=== PATIENT | female | born 1935 | race Caucasian/White ===

== ENCOUNTER 2023-08-23 23:38 | Inpatient (IN) | payer MEDICARE, SELFPAY ==
[2023-08-23] VITALS (10 sets, daily range): BP systolic 141–222; BP diastolic 74–99; PULSE 80–106; BMI 27.6
[2023-08-23 20:53] LABS: % Basophils 0.3 % (0-2); % Eosinophils 0.1 % (0-6); % Immature Granulocytes 0.3 % (0-0.5); % Lymphocytes 14.3 % (20.5-51.1); % Monocytes 5.2 % (1.7-9.3); % Neutrophils 79.8 % (42.2-75.2); Absolute Lymphocytes 1.4 10^3/uL (1.2-3.4); Absolute Monocytes 0.5 10^3/uL (0.1-0.6); Absolute Neutrophils 7.7 10^3/uL (1.4-6.5); Hematocrit 47.3 % (37.0-47.0); Hemoglobin 15.2 g/dL (12.0-16.0); Mean Corp Hgb Conc. 32.1 g/dL (33.0-37.0); Mean Corpuscular Hgb 31.7 pg (27.0-31.0); Mean Corpuscular Volume 98.5 fL (81.0-99.0); Mean Platelet Volume 10.8 fL (7.4-10.4); Nucleated Red Blood Cells % 0 %; Platelet Count 213 10^3/uL (130-400); Red Cell Dist. Width 12.6 % (11.5-14.5); White Blood Cell Count 9.6 10^3/uL (4.8-10.8)
--- NOTE | 2023-08-23 21:10 | ED.GENMED ---
History of Present Illness
<Jaden Liu PA-C - Last Filed: 08/23/23 23:04>
General
Chief Complaint: Breathing Problem
Source: patient
Exam Limitations: none
Time Seen by Provider: 08/23/23 20:37
Travel History
Have you had any contact with someone who has COVID-19?: No
Do you have any symptoms of coronavirus? Fever > 100 degrees, chills, cough, shortness of breath, sore throat, loss of taste or smell, muscle aches, or headache?: No
History of Present Illness
History of Present Illness:
88-year-old female presents with progressively worsening weakness shortness of breath with exertion and generalized dysfunction. She feels weak and unsteady when she stands. She denies a headache or chest pain. No measurable fever. She notes a
cough. Says a history of A-fib on Eliquis. She has a history of interstitial lung disease. She lives by herself. Typically ambulates with a rolling walker. Symptoms have cumulated and at this point patient is having trouble functioning at home.
She noticing increased daytime sleepiness.
Past History
<Jaden Liu PA-C - Last Filed: 08/23/23 23:04>
Past History
ED Past Medical History: GERD, HTN, Hypercholesterolemia and Other (Hiatal hernia, arthritis )
ED Past Surgical History: Appendectomy, Orthopedic (Bilateral knee replacement ) and Tonsilectomy
Social History
Tobacco: Non-smoker
Alcohol: Occasional
Drug: None
Employment: Retired
Family History
Family History: Other (Non-contributory )
Phy Exam
<Jaden Liu PA-C - Last Filed: 08/23/23 23:04>
Physical Exam
Physical Exam:
General: Overall nontoxic female no acute respiratory distress
HEENT: Normocephalic atraumatic
Heart: Regular rate and rhythm
Lungs: Subtle coarse breath sounds at the left base
Abdomen is soft nontender nondistended
Extremities: No cyanosis or edema
Skin: Warm no rash
Neurologic exam: Alert no facial asymmetry or slurred speech. No tremor
Scores
<Jaden Liu PA-C - Last Filed: 08/23/23 23:04>
Heart Failure Risk
Heart Failure Risk Score: Not Applicable
Course
<Jaden Liu PA-C - Last Filed: 08/23/23 23:04>
Orders/Labs/Results
Orders:
Orders
08/23/23 20:03
ECG [Electrocardiogram (*1)] Urgent
Reason for Study: Shortness of Breath
08/23/23 20:04
EKG- Treatment ONCE
08/23/23 20:45
Electrocardiogram (*1) Urgent
Reason for Study: Other
Other Reason for Exam: Respiratory Distress
CR Chest - 2 Views Urgent
Comment:
Reason For Exam: sob
08/23/23 20:47
Complete Blood Count/With Diff Urgent
Comprehensive Metabolic Panel Urgent
NT-proBNP Urgent
Troponin I Urgent
08/23/23 21:57
COVID-19 Antigen Urgent
Source: Nasal Swab
Magnesium Urgent
Phos [Phosphorus] Urgent
TSH Reflex To Free T4 Urgent
Influenza A+B Rapid Molecular Urgent
ANKITA Source: Nasal Swab
Specimen Description:
08/23/23 22:21
Urinalysis Reflex To Culture Urgent
Date Specimen was Collected: 08/23/23
Time Specimen was Collected: 22:20
Urine Microscopic Reflex Cult Urgent
Urine Culture Urgent
ANKITA Source: U
Specimen Description:
Date Specimen was Collected: 08/23/23
Time Specimen was Collected: 22:20
08/23/23 22:23
0.9% Sodium Chloride 500 ml [Nss] 500 ml IV BOLUS
08/23/23 22:59
CefTRIAXone [Rocephin] 1,000 mg IV NOW STA
Abnormal Lab Results
08/23/23 08/23/23
20:47 22:21
Hct 47.3 H %
(37.0-47.0)
MCH 31.7 H pg
(27.0-31.0)
MCHC 32.1 L g/dL
(33.0-37.0)
MPV 10.8 H fL
(7.4-10.4)
Absolute Neuts (auto) 7.7 H 10^3/uL
(1.4-6.5)
Neutrophils % 79.8 H %
(42.2-75.2)
Lymphocytes % 14.3 L %
(20.5-51.1)
BUN 21 H mg/dl
(7-17)
Glucose 195 H mg/dl
(70-99)
Urine Ketones Trace A
(Negative)
Ur Occult Blood Reflex 1+ A
(Negative)
Urine Nitrite (Reflex) Positive A
(Negative)
Leukocyte Esterase Rfl Trace A
(Negative)
Urine RBC 3-6 A /HPF
(0-2)
Urine Bacteria (Reflex) Moderate A
(Negative)
08/23/23 20:47
08/23/23 20:47
Vital Signs
Initial and Last Documented VS:
Initial Vital Signs
Temp Pulse Resp BP Pulse Ox
97.6 F 120 20 163/93 96
08/23/23 20:01 08/23/23 20:01 08/23/23 20:01 08/23/23 20:01 08/23/23 20:01
Last Documented Vital Signs
Temp Pulse Resp BP Pulse Ox
97.6 F 73 19 189/75 95
08/23/23 20:01 08/23/23 22:02 08/23/23 22:02 08/23/23 22:02 08/23/23 22:02
<Henrry Mosqueda MD - Last Filed: 08/23/23 22:17>
Orders/Labs/Results
Orders:
Orders
08/23/23 20:03
ECG [Electrocardiogram (*1)] Urgent
Reason for Study: Shortness of Breath
08/23/23 20:04
EKG- Treatment ONCE
08/23/23 20:45
Electrocardiogram (*1) Urgent
Reason for Study: Other
Other Reason for Exam: Respiratory Distress
CR Chest - 2 Views Urgent
Comment:
Reason For Exam: sob
08/23/23 20:47
Complete Blood Count/With Diff Urgent
Comprehensive Metabolic Panel Urgent
NT-proBNP Urgent
Troponin I Urgent
08/23/23 21:57
COVID-19 Antigen Urgent
Source: Nasal Swab
Magnesium Urgent
Phos [Phosphorus] Urgent
TSH Reflex To Free T4 Urgent
Influenza A+B Rapid Molecular Urgent
ANKITA Source: Nasal Swab
Specimen Description:
08/23/23 22:21
Urinalysis Reflex To Culture Urgent
Date Specimen was Collected: 08/23/23
Time Specimen was Collected: 22:20
Urine Microscopic Reflex Cult Urgent
Urine Culture Urgent
ANKITA Source: U
Specimen Description:
Date Specimen was Collected: 08/23/23
Time Specimen was Collected: 22:20
08/23/23 22:23
0.9% Sodium Chloride 500 ml [Nss] 500 ml IV BOLUS
08/23/23 22:59
CefTRIAXone [Rocephin] 1,000 mg IV NOW STA
Abnormal Lab Results
08/23/23 08/23/23
20:47 22:21
Hct 47.3 H %
(37.0-47.0)
MCH 31.7 H pg
(27.0-31.0)
MCHC 32.1 L g/dL
(33.0-37.0)
MPV 10.8 H fL
(7.4-10.4)
Absolute Neuts (auto) 7.7 H 10^3/uL
(1.4-6.5)
Neutrophils % 79.8 H %
(42.2-75.2)
Lymphocytes % 14.3 L %
(20.5-51.1)
BUN 21 H mg/dl
(7-17)
Glucose 195 H mg/dl
(70-99)
Urine Ketones Trace A
(Negative)
Ur Occult Blood Reflex 1+ A
(Negative)
Urine Nitrite (Reflex) Positive A
(Negative)
Leukocyte Esterase Rfl Trace A
(Negative)
Urine RBC 3-6 A /HPF
(0-2)
Urine Bacteria (Reflex) Moderate A
(Negative)
08/23/23 20:47
08/23/23 20:47
Vital Signs
Initial and Last Documented VS:
Initial Vital Signs
Temp Pulse Resp BP Pulse Ox
97.6 F 120 20 163/93 96
08/23/23 20:01 08/23/23 20:01 08/23/23 20:01 08/23/23 20:01 08/23/23 20:01
Last Documented Vital Signs
Temp Pulse Resp BP Pulse Ox
97.6 F 73 19 189/75 95
08/23/23 20:01 08/23/23 22:02 08/23/23 22:02 08/23/23 22:02 08/23/23 22:02
<Jaden Liu PA-C - Last Filed: 08/23/23 23:04>
MDM/Problems Addressed
Differential Diagnosis Includes:
Generalized fatigue with shortness of breath. History of hypertension A-fib and interstitial lung disease. Noted to be hypertensive initially with his systolic 200s over 90s. Will check labs including EKG troponin and BNP. Chest x-ray pending.
<Jaden Liu PA-C - Last Filed: 08/23/23 23:04>
*Critical Care Note
Total Time (30-74mins, 75-104mins- exclusive of procedures): Not Applicable
<Jaden Liu PA-C - Last Filed: 08/23/23 23:04>
Update Note
Update Note:
Patient reevaluated. Vital signs are stable. She is orthostatic upon standing. She is symptomatic upon standing with relative drop in blood pressure. She has had urinary symptoms and straight cath urine specimen shows likely UTI with nitrite
positive urine and moderate bacteria. Will start Rocephin and give fluids. Patient over the past week has not been able to get out of bed much at all. Will keep in hospital for treatment
ED Attending Note
<Jaden Liu PA-C - Last Filed: 08/23/23 23:04>
-
Portions of this chart may have been created with voice recognition software.� Occasional wrong word or��sound alike� substitutions may have occurred due to the inherent limitations of voice recognition software.
<Henrry Mosqueda MD - Last Filed: 08/23/23 22:17>
ED Attending Note
Patient seen and examined by attending physician: Yes
ED Attending Note:
I have seen and evaluated the patient with a [id number] encounter. I have spoken to the advance practicer provider and involved in the medical history, the physical exam, medical decision making.
Evaluation and management service: agree unless noted differently below.
Results interpretation: agree unless noted differently below.
Focused HPI: 88-year-old female with history of hypertension, hyperlipidemia, interstitial lung disease who presents to the emergency department for evaluation of increased weakness, elevated blood pressure. Patient reports that over the past week
she has been dealing with increased weakness in her legs�she says that 'my legs feel like jelly.' She says that even something as simple as standing in the kitchen making herself lunch caused her to feel very weak and tired. She says that over
that period of time she has been monitoring her blood pressure and she has noticed that it has been higher than usual despite compliance with her normal medications; she says that it has been running in the 160s and 170 range and occasionally going
as high as the 180s. She says that she has chronic shortness of breath with interstitial lung disease but she feels that recently has been getting worse. She says that she decided to come in to be evaluated tonight because things were not getting
any better and in fact seem to be getting worse. She denies any chest pain. Denies any cough. Denies any fever. She has had some increased urinary frequency she says. Denies abdominal pain. No nausea or vomiting but did have a few episodes of
loose stools.
Physical exam: Awake alert not in distress. Hypertensive, tachycardic. Afebrile. She has no cardiac rubs gallops or murmurs. Faint scattered wheezing on lung auscultation. Abdomen nontender to deep palpation. No focal weakness, cranial nerves
grossly intact.
Differential diagnosis: Wide and includes anemia, electrolyte derangement, dehydration, deconditioning, CHF, pneumonia, UTI, viral syndrome, hypothyroidism
Medical Decision Makin-year-old female presents for increasing generalized weakness particularly in the legs, increasing shortness of breath in the setting of chronic dyspnea from interstitial lung disease, uncontrolled blood pressure. Exam as
above. Will place an IV check labs including a CBC, CMP, troponin and a BNP. Will check thyroid studies. Send viral swabs. Check chest x-ray. Check an EKG. Send urinalysis. Monitor closely reassess after the above.
UPDATES:
Reassessment blood pressure improving now 150s systolic. Heart rate normalized after initial triage tachycardia. Her initial labs were reviewed: CBC shows no clinically significant abnormalities, CMP shows mildly elevated glucose otherwise
unremarkable. Troponin undetectable. BNP marginal at 286. Chest x-ray no pneumonia no signs of CHF. EKG shows a sinus rhythm. Awaiting rest of workup.
Discharge Plan
Departure
Patient Disposition: Admit
Date of Disposition: 08/23/23
Time of Disposition: 23:03
Admit to: Telemetry
Presentation/result/management discussed w/ accepting MD/DO: Hospitalist
Discharge Problem:
Orthostasis, Acute UTI
Prescriptions:
No Action
omeprazole 20 MG capsule,delayed release(DR/EC)
20 mg PO DAILY
ascorbic acid (vitamin C) [Vitamin C] 500 MG tablet
1,000 mg PO DAILY Qty: 0
calcium carbonate-vitamin D3 1 EACH tablet
1 tab PO DAILY Qty: 0
escitalopram oxalate 5 MG tablet
5 mg PO DAILY
simvastatin 10 MG tablet
10 mg PO HS
acetaminophen 325 MG tablet
650 mg PO Q4HWA 0RF
cyanocobalamin (vitamin B-12) 1,000 MCG tablet
1,000 mcg PO DAILY 0RF
diltiazem HCl 120 MG capsule,extended release 24hr
120 mg PO DAILY 0RF
cholecalciferol (vitamin D3) 2,000 UNITS tablet
2,000 units PO DAILY 0RF
Eliquis 5 mg tablet
5 mg PO BID Qty: 30 0RF
Referrals:
Ned Rea DO [Family Provider] -
Interventions
Interventions:
*Risk Screen - Suicide Last Done: 08/23/23 20:01
*General Assessment Last Done: 08/23/23 20:01
*Neglect/Abuse Screening Last Done: 08/23/23 20:01
ED- Fall Risk Assessment Last Done: 08/23/23 20:36
*ED COVID-19 Vaccine History Last Done: 08/23/23 20:36
ED- Cardiac Assessment Last Done: 08/23/23 20:36
ED- Pulmonary Assessment Last Done: 08/23/23 20:36
[2023-08-23 21:14] LABS: ALT (SGPT) 17 U/L (0-35); AST (SGOT) 27 U/L (14-36); Albumin 4.6 g/dl (3.5-5.0); Alkaline Phosphatase 119 U/L (38-126); Blood Urea Nitrogen 21 mg/dl (7-17); Calcium 9.5 mg/dl (8.4-10.2); Carbon Dioxide 22 mmol/L (22-30); Chloride 105 mmol/L (98-107); Estimated Creatinine Clearance 44 ml/min; Glucose 195 mg/dl (70-99); Potassium 4.7 mmol/L (3.5-5.1); Sodium 136 mmol/L (135-145); Total Bilirubin 0.6 mg/dl (0.2-1.3); Total Protein 7.2 g/dl (6.3-8.2); eGFR > 60.00
[2023-08-23 21:16] LABS: NT-proBNP 286 pg/ml; Troponin I < 0.012 ng/ml
[2023-08-23 22:26] LABS: Phosphorus 3.6 mg/dl (2.5-4.5)
[2023-08-23 22:27] LABS: Urine Albumin Trace (Neg - Trace); Urine Bilirubin Negative (Negative); Urine Character Clear (Clear); Urine Color Yellow; Urine Glucose Negative (Negative); Urine Ketone Trace (Negative); Urine Leukocyte Trace (Negative); Urine Nitrite Positive (Negative); Urine Occult Blood 1+ (Negative); Urine Urobilinogen Negative (Neg - 1+)
[2023-08-23 22:27] LABS: COVID-19 Antigen Negative (Negative)
[2023-08-23] MEDS: NSS 500 IV (22:31)
[2023-08-23 22:55] LABS: Urine Bacteria Moderate (Negative); Urine Mucus Moderate; Urine White Cell 0-2 /HPF (0-5)
[2023-08-23 22:59] LABS: TSH Reflex To Free T4 0.77 uIU/ml (0.47-4.68)
[2023-08-23] MEDS: ROCEPHIN 1000 MG IV (23:04)
--- NOTE | 2023-08-23 23:48 | HPS.HSE ---
Family Physician
-
Family Physician: Ned Rea
Chief Complaint
-
Dizziness
History of Present Illness
Patient is an 88y F with PMH significant for ILD, hypertension and A-Fib who presents to ED complaining of dizziness. Patient states that she has had intermittent / positional dizziness, tremulousness and generally feeling poorly for the past
several months. Over the past week, her symptoms have been markedly worse. Patient states that her BP has been running high for the past several months as well. She reports values at home 170s / 80s. Patient notes that she feels 'dizzy' when
standing from a seated or lying position. She reports that she feels her legs will 'give out'. She does endorse vertiginous symptoms including room spinning and loss of balance. In the ED, patient is able to sit upright only if she 'holds on' to
the bedrails to steady herself.
Patient states that she has had no falls nor syncope despite these symptoms.
She denies any other focal / specific symptoms including chest pain, abdominal pain, N/V/D or urinary complaints.
Medical History
Past Medical History
Past Medical History: Reports Other
Additional Past Medical History:
Paroxysmal Atrial Fibrillation
Hypertension
GERD / Hiatal Hernia
Ambulatory Dysfunction
DJD
Interstitial Lung Disease
Past Surgical History: Reports Other
Additional Past Surgical History:
Bilateral TKA
Bilateral REBA
Right TSA
Appendectomy
Hysterectomy
Cataracts
Hernia Repair
Social History
Tobacco: Non-smoker
Alcohol: None
Drug: None
Family History
Family History: Other (Father: CAD Mother: COPD Sister: COPD, CAD)
Allergies / Home Medications
Allergies reflects when Allergies were last updated in [facility].
Home Medications with original date entered in [facility]
Allergy/Medication List:
Allergies
Allergy/AdvReac Type Severity Reaction Status Date / Time
No Known Allergies Allergy Verified 08/23/23 20:01
Home Medications
omeprazole 20 mg capsule,delayed release 20 mg PO DAILY Gastrointestinal issue 03/09/10
ascorbic acid (vitamin C) 500 mg tablet (Vitamin C) 1,000 mg PO DAILY Supplement ##0 03/22/16
calcium carbonate 500 mg-vitamin D3 3.125 mcg (125 unit) tablet 1 tab PO DAILY Supplement ##0 03/22/16
escitalopram oxalate 5 mg tablet 5 mg PO DAILY Mental Health 10/19/18
simvastatin 10 mg tablet 10 mg PO HS High cholesterol 10/19/18
acetaminophen 325 mg tablet 650 mg PO Q4HWA 12/28/19
cholecalciferol (vitamin D3) 50 mcg (2,000 unit) tablet 2,000 units PO DAILY 12/28/19
cyanocobalamin (vitamin B-12) 1,000 mcg tablet 1,000 mcg PO DAILY 12/28/19
diltiazem HCl 120 mg capsule,extended release 24 hr 120 mg PO DAILY 12/28/19
apixaban 5 mg tablet (Eliquis) 5 mg PO BID #30 tabs 08/16/22
Review of Systems
-
History Source: Patient
Constitutional: Reports Fatigue; Denies Fever or Chills
EENT: Denies Sore Throat
Respiratory: Reports Trouble Breathing; Denies Cough or Hemoptysis
Cardiac: Denies Chest Pain or Palpitations
Abdomen/GI: Denies Abdominal Pain, Nausea, Vomiting or Diarrhea
: Denies Dysuria, Frequency or Flank Pain
Musculoskeletal: Denies Joint Pain or Edema
Neurological: Reports Dizzy; Denies Headache
Psych: Denies Depression or Anxiety
Physical Exam
Vital Signs
Vital Signs
Temp Pulse Resp BP Pulse Ox
97.6 F 68 14 210/74 98
08/23/23 20:01 08/23/23 23:09 08/23/23 23:09 08/23/23 23:09 08/23/23 23:09
Physical Exam
General: Other (88y F in no acute distress.)
HEENT: Moist mucous membranes, PERRLA and Other (No appreciable nystagmus.)
Respiratory: Other (Few bibasilar rales - otherwise clear.)
Cardiac: S1/S2 and Regular Rhythm; No Murmur
GI: Soft, Non Tender, Non Distended and Normal Bowel Sounds
Musculoskeletal: No Clubbing, No Cyanosis and No Edema
Neuro: AO x 3 and Nonfocal/grossly intact
Laboratory Results
-
08/23/23 20:47
08/23/23 20:47
Laboratory Results
Total Bilirubin 0.6 mg/dl (0.2-1.3) 08/23/23 20:47
AST 27 U/L (14-36) 08/23/23 20:47
ALT 17 U/L (0-35) 08/23/23 20:47
Alkaline Phosphatase 119 U/L (38-126) 08/23/23 20:47
Troponin I < 0.012 ng/ml 08/23/23 20:47
Impression/Plan
-
A/P: Patient is an 88y F with PMH significant for A-Fib, HTN and ILD who presents to ED complaining of dizziness.
Dizziness
Uncontrolled Hypertension
- Admit for further evaluation and treatment.
- Patient reports symptoms x months - but worse over the past week.
- BP markedly elevated in the ED with systolic > 200.
- Normal troponin, no chest pain, no significant albuminuria, etc.
- Patient describes clear vertiginous symptoms, but also has positive tilt in the ED with decrease in systolic pressure from 200 to 140.
- Follow for improved BP control.
- Change regimen for now to losartan and amlodipine. Hydralazine IV PRN for higher BPs.
- Adjust as needed for adequate control.
- Check MRI in the AM given vertiginous symptoms.
- Neuro evaluation given orthostasis, tremors / tremulousness and gait dysfunction.
- ? Multisystem organ dysfunction / Parkinsonism given constellation of symptoms.
- Review of outpatient records show prior Rx for meclizine suggestive previous episodes of vertigo as well.
- Restart meclizine PRN. PT / OT evaluations.
- Follow for any new / focal symptoms or complaints.
Paroxysmal Atrial Fibrillation
- Stable. Currently in sinus rhythm.
- Continue Eliquis for stroke risk reduction.
Interstitial Lung Disease
- Patient reports chronic subjective dyspnea - but no significant hypoxemia and not on home O2.
- Monitor for any new symptoms / complaints.
DVT Prophylaxis: On Eliquis
Code Status: Full
[2023-08-24] VITALS (10 sets, daily range): BP systolic 84–216; BP diastolic 52–99; PULSE 78–150; O2SAT 95; BMI 26.9
[2023-08-24] MEDS: NORVASC 5 MG PO ×2 (01:15→09:08)
[2023-08-24 06:04] LABS: Hematocrit 42.8 % (37.0-47.0); Mean Corp Hgb Conc. 32.7 g/dL (33.0-37.0); Mean Corpuscular Hgb 31.6 pg (27.0-31.0); Mean Corpuscular Volume 96.6 fL (81.0-99.0); Mean Platelet Volume 10.9 fL (7.4-10.4); Platelet Count 189 10^3/uL (130-400); Red Blood Cell Count 4.43 10^6/uL (4.20-5.40); Red Cell Dist. Width 12.5 % (11.5-14.5); White Blood Cell Count 10.6 10^3/uL (4.8-10.8)
[2023-08-24 06:24] LABS: Blood Urea Nitrogen 16 mg/dl (7-17); Calcium 9.3 mg/dl (8.4-10.2); Carbon Dioxide 26 mmol/L (22-30); Chloride 102 mmol/L (98-107); Estimated Creatinine Clearance 50 ml/min; Glucose 106 mg/dl (70-99); Potassium 4.1 mmol/L (3.5-5.1); Sodium 136 mmol/L (135-145); eGFR > 60.00
--- NOTE | 2023-08-24 08:29 | W.PN.HOSP.TC ---
Today's Communication/Plan
-
MRI
Neuro consult
Cardio consult
Assessment / Plan
Assessment / Plan
A/P:� Patient is an 88y F with PMH significant for A-Fib, HTN and ILD who presents to ED complaining of dizziness.
Dizziness
Uncontrolled Hypertension
�- BP was up to 216/82 during night, currently in the 168/73 range
Pt takes Diltiazem CD 120 daily [address] follows with Dr. Richardson
Medication changed to Amlodipine and Losartan
Will consult Cardio
�- Patient reports symptoms x months - but worse over the past week.
�- Normal troponin, no chest pain, no significant albuminuria, etc.
�- Patient describes clear vertiginous symptoms, but also has positive tilt in the ED with decrease in systolic pressure from 200 to 140.
�- Follow for improved BP control.
�- Check MRI in the AM given vertiginous symptoms.
�- Neuro evaluation given orthostasis, tremors / tremulousness and gait dysfunction.
�- ? Multisystem organ dysfunction / Parkinsonism given constellation of symptoms.
�- Review of outpatient records show prior Rx for meclizine suggestive previous episodes of vertigo as well.
Though pt states current symptoms appear different
�- Restart meclizine PRN.� PT / OT evaluations.
Paroxysmal Atrial Fibrillation
�- Stable.� Currently in sinus rhythm.
�- Continue Eliquis for stroke risk reduction.
Interstitial Lung Disease
�- Patient reports chronic subjective dyspnea - but no significant hypoxemia and not on home O2.
�- Monitor for any new symptoms / complaints.
DVT Prophylaxis:� On Eliquis
Code Status:� Full
Anticipated Discharge: 24 - 48 hours
Subjective/Interval History
-
Date of Service: August 24, 2023
Remains dizzy, minimal when laying flat, worsens with sitting up
Objective Data
-
Labs:
Laboratory Results
08/23/23 08/24/23
20:47 05:09
WBC 9.6 10.6
Hgb 15.2 14.0
Hct 47.3 H 42.8
Plt Count 213 189
Sodium 136 136
Potassium 4.7 4.1
Chloride 105 102
Carbon Dioxide 22 26
BUN 21 H 16
Creatinine 0.9 0.7
Glucose 195 H 106 H
Calcium 9.5 9.3
Total Bilirubin 0.6
AST 27
ALT 17
Alkaline Phosphatase 119
Vital Signs:
Vital Signs
Temp Pulse Resp BP Pulse Ox
98.6 F 75 12 168/73 94
08/24/23 07:00 08/24/23 07:00 08/24/23 07:00 08/24/23 07:00 08/24/23 07:00
I&O
08/23/23 08/24/23 08/25/23
06:59 06:59 06:59
Intake Total 480 / 480
Output Total 650 / 650
Balance -170 / -170
Review of Systems
-
History Source: Patient
Constitutional: Denies Fever
EENT: Reports No Symptoms Reported
Respiratory: Reports Trouble Breathing (chronic)
Cardiac: Denies Chest Pain
Musculoskeletal: Reports No Symptoms
Neuro: Reports Dizzy
Physical Exam
-
General: Well Developed, Well Nourished and No Apparent Distress
HEENT: Normocephalic, Atraumatic, Moist Mucous Membranes and Other (minimal lateral nystagmus noted, slightly more evident on leftward gaze)
Respiratory: Rales (minimal bibasilar rales on deep inspiration)
Cardiac: Regular Rhythm and S1/S2; Negative Murmur
GI: Nontender and Nondistended
Musculoskeletal: No Clubbing, No Cyanosis and No Edema
Neuro: Awake, Alert and Oriented; Negative Slurred Speech or Facial Droop
[2023-08-24] MEDS: COZAAR 50 MG PO (09:07)
[2023-08-24] MEDS: ELIQUIS 5 MG PO ×2 (09:08→21:01)
[2023-08-24] MEDS: PROTONIX 40 MG PO (09:08)
--- NOTE | 2023-08-24 09:42 | CON.NEURO ---
Consultation
Order
Date of Consultation: 08/24/23
Reason for Consult: Dizziness
CC: Dizziness
HPI: This is an 88-year-old woman who presented to [facility] on August 23, 2023 with dizziness. According to the patient she has had intermittent lightheadedness provoked with standing with associated imbalance and shakiness that has
worsened over the last 2-week.
Ms. Concepcion's admits to progressive ambulatory dysfunction requiring her to use a walker for imbalance over the last 1.5 year.
No reports of numbness in the feet, radicular back pain abnormal movements. The patient has had chronic urinary incontinence.
ER VS: 163/93�206/91 BP max 222/77, 120, afebrile
EKG: NSR, QTc Int : 442 ms
PDMP:none
Labs: Glucose�195, normal WBCs, comp, negative SARS-CoV-2 antigen UA�positive for RBCs, WBCs, urine nitrates and trace of leukocyte esterase
No new images are available for review.
PMH: A-fib onapixaban, ILD, cervical DJD, HTN, GERD,
PSH:BL TKA, BL REBA, bilateral cataract surgery,, appendectomy, hysterectomy, hernia repair,
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
FH:CAD; COPD ��
All:NKDA
ROS:Constitutional: Negative. Negative for chills, fever and unexpected weight change.
HENT: Positive for chronic hearing impaired
Eyes: Negative. Negative for photophobia, pain and visual disturbance.
Respiratory: Positive for dyspnea
Cardiovascular: Negative for chest pain, palpitations and leg swelling.
Gastrointestinal: Negative for abdominal pain and vomiting.
Endocrine: Negative. Negative for cold intolerance.
Genitourinary: Positive for urinary incontinence
Musculoskeletal: Positive for gait problem
Skin: Negative for rash.
Allergic/Immunologic: Negative. Negative for immunocompromised state.
Neurological: Positive for imbalance, lightheadedness
Psychiatric/Behavioral: Negative for behavioral problems, confusion and hallucinations.
General: Well developed. In no acute distress.
Cardio: Regular rate and rhythm without murmur. Extremities are without cyanosis or edema.
Neuro:
Mental Status: Alert, oriented to person, place, and date. Increased processing time. Preserved attention. No aphasia or hemineglect
Good fund of knowledge. Follows complex requests across the midline. Comprehension, naming, and repetition intact.
Cranial Nerves: Pupils are equally round, surgical. EOMs full including normal gait. Visual blanco full to confrontation. No ptosis. No nystagmus. V1-V3 intact to light touch and pinprick bilaterally, symmetric. Face symmetric. Impaired
hearing AU. The palate elevated well. SCMs and traps 5/5. Tongue midline. No dysarthria.
Motor: Increased motor tone left than the right. No pronator or arm drift. Strength 5/5 throughout. No clonus.
Reflexes: Mild grasp bilaterally. No clonus at the ankles. 0 throughout
Sensory: Absent vibration at the toes ankles and reduced at the knees.
Coordination: No dysmetria or tremor.
Gait: deferred
Assessment and Plan:
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
II. Orthostatic hypotension
III. Distal symmetric large fiber polyneuropathy
IV. Ambulatory dysfunction
-Fall precautions
-Brain MRI without
-PT
-Please check B12, B1, SPEP/IF, PTH
-Avoid dopamine blocking medications
-Avoid straining, coughing, and walking in hot weather; these activities reduce venous return and worsen orthostatic hypotension.
-Maintain hydration and avoiding over-heating.
-Raise the head of the bed 10 to 20 degrees to decrease renal perfusion, to activating the ahpkj-iffyapvivfw-lgwfbbhqvof system and decrease nocturnal diuresis,'
-Use of custom-fitted elastic stockings permits the application of graded pressure to the lower extremities and lower abdomen, to minimize peripheral blood pooling. It is essential that such stockings extend to the waist since most peripheral
pooling occurs in the splanchnic circulation.
-Avoid large meals.
-Ingest meals low in carbohydrate.
-Drink water with meals.
-Avoid activities or sudden standing immediately after eating.
�-DVT prophylaxis
I personally reviewed all radiology and labs along with past medical records pertinent to current medical problems. Total time spent in patient care is 60 minutes.
Thank you for allowing us to participate in the care of this patient. We will continue to follow. Please do not hesitate to contact us with any questions or concerns.
Subjective/Objective
Subjective Data
Date of Service: August 24, 2023
Objective Data
Vital Signs
Temp Pulse Resp BP Pulse Ox
37.0 C 72 12 168/73 94
08/24/23 07:00 08/24/23 09:07 08/24/23 07:00 08/24/23 09:07 08/24/23 07:00
Lab Results
08/24/23 05:09
08/24/23 05:09
Sodium 136 mmol/L (135-145) 08/24/23 05:09
Potassium 4.1 mmol/L (3.5-5.1) 08/24/23 05:09
BUN 16 mg/dl (7-17) 08/24/23 05:09
Glucose 106 mg/dl (70-99) H 08/24/23 05:09
Calcium 9.3 mg/dl (8.4-10.2) 08/24/23 05:09
Phosphorus 3.6 mg/dl (2.5-4.5) 08/23/23 21:57
Klq-F-Grmbqbuyxmx Pept 286 pg/ml 08/23/23 20:47
Patient Allergies
No Known Allergies Allergy (Verified 08/23/23 20:01)
Medications
-
Active Medications
Generic Name Dose Route Start Last Admin
Trade Name Freq PRN Reason Stop Dose Admin
Acetaminophen 650 mg 08/24/23 00:57
Acetaminophen 325 Mg Tablet PO 09/21/23 00:56
Q4HPRN PRN
Mild Pain / Temp > 101
Amlodipine Besylate 5 mg 08/24/23 00:57 08/24/23 09:08
Amlodipine 5 Mg Tablet PO 09/21/23 00:56 5 mg
BID PHILL Administration
Apixaban 5 mg 08/24/23 08:00 08/24/23 09:08
Apixaban (Eliquis) 5 Mg Tablet PO 09/21/23 07:59 5 mg
BID PHILL Administration
Atorvastatin Calcium 10 mg 08/24/23 22:00
Atorvastatin (Lipitor) 10 Mg Tablet PO 09/21/23 21:59
HS PHILL
Hydralazine HCl 5 mg 08/24/23 00:57
Hydralazine 20 Mg/Ml Vial IV 09/21/23 00:56
Q6HPRN PRN
SBP > 180
Losartan Potassium 50 mg 08/24/23 08:00 08/24/23 09:07
Losartan 50 Mg Tablet PO 09/21/23 07:59 50 mg
DAILY PHILL Administration
Meclizine HCl 25 mg 08/24/23 00:57
Meclizine 25 Mg Tablet PO 09/21/23 00:56
Q8HPRN PRN
Dizziness
Pantoprazole Sodium 40 mg 08/24/23 08:00 08/24/23 09:08
Pantoprazole 40 Mg Delayed Release Tablet PO 09/21/23 07:59 40 mg
DAILY PHILL Administration
Sodium Chloride 0 flush 08/24/23 01:00
Sodium Chloride 0.9% (Flush) Syringe IV 09/21/23 00:59
PER PROTOCOL PHILL
Home Medications
Medication Instructions Recorded
omeprazole 20 mg capsule,delayed 20 mg PO DAILY Gastrointestinal 03/09/10
release issue
ascorbic acid (vitamin C) 500 mg 1,000 mg PO DAILY Supplement ##0 03/22/16
tablet (Vitamin C)
calcium carbonate 500 mg-vitamin 1 tab PO DAILY Supplement ##0 03/22/16
D3 3.125 mcg (125 unit) tablet
escitalopram oxalate 5 mg tablet 5 mg PO DAILY Mental Health 10/19/18
simvastatin 10 mg tablet 10 mg PO HS High cholesterol 10/19/18
acetaminophen 325 mg tablet 650 mg PO Q4HWA 12/28/19
cholecalciferol (vitamin D3) 50 2,000 units PO DAILY 12/28/19
mcg (2,000 unit) tablet
cyanocobalamin (vitamin B-12) 1,000 mcg PO DAILY 12/28/19
1,000 mcg tablet
diltiazem HCl 120 mg 120 mg PO DAILY 12/28/19
capsule,extended release 24 hr
apixaban 5 mg tablet (Eliquis) 5 mg PO BID #30 tabs 08/16/22
Vital Signs and Labs
-
Vital Signs and Labs:
Vital Signs
Temp Pulse Resp BP Pulse Ox
37.0 C 72 12 168/73 94
08/24/23 07:00 08/24/23 09:07 08/24/23 07:00 08/24/23 09:07 08/24/23 07:00
Lab Results
08/24/23 05:09
08/24/23 05:09
Sodium 136 mmol/L (135-145) 08/24/23 05:09
Potassium 4.1 mmol/L (3.5-5.1) 08/24/23 05:09
BUN 16 mg/dl (7-17) 08/24/23 05:09
Glucose 106 mg/dl (70-99) H 08/24/23 05:09
Calcium 9.3 mg/dl (8.4-10.2) 08/24/23 05:09
Phosphorus 3.6 mg/dl (2.5-4.5) 08/23/23 21:57
Lpt-Y-Tllzagvdvvu Pept 286 pg/ml 08/23/23 20:47
Home Medications
-
Home Medications
omeprazole 20 mg capsule,delayed release 20 mg PO DAILY Gastrointestinal issue 03/09/10
ascorbic acid (vitamin C) 500 mg tablet (Vitamin C) 1,000 mg PO DAILY Supplement ##0 03/22/16
calcium carbonate 500 mg-vitamin D3 3.125 mcg (125 unit) tablet 1 tab PO DAILY Supplement ##0 03/22/16
escitalopram oxalate 5 mg tablet 5 mg PO DAILY Mental Health 10/19/18
simvastatin 10 mg tablet 10 mg PO HS High cholesterol 10/19/18
acetaminophen 325 mg tablet 650 mg PO Q4HWA 12/28/19
cholecalciferol (vitamin D3) 50 mcg (2,000 unit) tablet 2,000 units PO DAILY 12/28/19
cyanocobalamin (vitamin B-12) 1,000 mcg tablet 1,000 mcg PO DAILY 12/28/19
diltiazem HCl 120 mg capsule,extended release 24 hr 120 mg PO DAILY 12/28/19
apixaban 5 mg tablet (Eliquis) 5 mg PO BID #30 tabs 08/16/22
Medications
-
Medications:
Generic Name Dose Route Start Last Admin
Trade Name Freq PRN Reason Stop Dose Admin
Acetaminophen 650 mg 08/24/23 00:57
Acetaminophen 325 Mg Tablet PO 09/21/23 00:56
Q4HPRN PRN
Mild Pain / Temp > 101
Amlodipine Besylate 5 mg 08/24/23 00:57 08/24/23 09:08
Amlodipine 5 Mg Tablet PO 09/21/23 00:56 5 mg
BID PHILL Administration
Apixaban 5 mg 08/24/23 08:00 08/24/23 09:08
Apixaban (Eliquis) 5 Mg Tablet PO 09/21/23 07:59 5 mg
BID PHILL Administration
Atorvastatin Calcium 10 mg 08/24/23 22:00
Atorvastatin (Lipitor) 10 Mg Tablet PO 09/21/23 21:59
HS PHILL
Hydralazine HCl 5 mg 08/24/23 00:57
Hydralazine 20 Mg/Ml Vial IV 09/21/23 00:56
Q6HPRN PRN
SBP > 180
Losartan Potassium 50 mg 08/24/23 08:00 08/24/23 09:07
Losartan 50 Mg Tablet PO 09/21/23 07:59 50 mg
DAILY PHILL Administration
Meclizine HCl 25 mg 08/24/23 00:57
Meclizine 25 Mg Tablet PO 09/21/23 00:56
Q8HPRN PRN
Dizziness
Pantoprazole Sodium 40 mg 08/24/23 08:00 08/24/23 09:08
Pantoprazole 40 Mg Delayed Release Tablet PO 09/21/23 07:59 40 mg
DAILY PHILL Administration
Sodium Chloride 0 flush 08/24/23 01:00
Sodium Chloride 0.9% (Flush) Syringe IV 09/21/23 00:59
PER PROTOCOL PHILL
--- NOTE | 2023-08-24 14:12 | CON.CAR ---
Consultation
Consultation Request
Date/Time Consultation Requested: 08/23/22, 10am
Date/Time Consultation Performed: 08/24/23, 1pm
Requesting Provider: Nereyda
Performing Provider: Adi
Reason for Consultation: HTN urgency
Medical History
-
Chief Complaint: dizziness
History of Present Illness:
87 year old female with HTN and orthostatic hypotension, non-obstructive CAD, hyperlipidemia, chronic DUNBAR, dizziness/tremor is admitted with HTN urgency, dizziness, tremor.
She denies CP, edema, syncope.
Dizziness, tremor being evaluated by neurology.
We are consulted for BP management.
Past Medical History
Past Medical History: CAD, GERD, HTN and Hypercholesterolemia
Past Surgical History: Appendectomy, Gynecological (hysterectomy) and Orthopedic (TKA)
Social History
Tobacco: Non-Smoker
Family History
Family History: CAD (father)
Allergies / Home Medications
Allergy/AdvReac Type Severity Reaction Status Date / Time
No Known Allergies Allergy Verified 08/23/23 20:01
Medication Instructions Recorded Confirmed Type
omeprazole 20 mg capsule,delayed 20 mg PO DAILY Gastrointestinal 03/09/10 08/23/23 History
release issue
ascorbic acid (vitamin C) 500 mg 1,000 mg PO DAILY Supplement ##0 03/22/16 08/23/23 History
tablet (Vitamin C)
calcium carbonate 500 mg-vitamin 1 tab PO DAILY Supplement ##0 03/22/16 08/23/23 History
D3 3.125 mcg (125 unit) tablet
escitalopram oxalate 5 mg tablet 5 mg PO DAILY Mental Health 10/19/18 08/23/23 History
simvastatin 10 mg tablet 10 mg PO HS High cholesterol 10/19/18 08/23/23 History
acetaminophen 325 mg tablet 650 mg PO Q4HWA 12/28/19 08/23/23 Rx
cholecalciferol (vitamin D3) 50 2,000 units PO DAILY 12/28/19 08/23/23 Rx
mcg (2,000 unit) tablet
cyanocobalamin (vitamin B-12) 1,000 mcg PO DAILY 12/28/19 08/23/23 Rx
1,000 mcg tablet
diltiazem HCl 120 mg 120 mg PO DAILY 12/28/19 08/23/23 Rx
capsule,extended release 24 hr
apixaban 5 mg tablet (Eliquis) 5 mg PO BID #30 tabs 08/16/22 08/23/23 Rx
Review of Systems
-
History Source: Patient
Constitutional: Fatigue
Respiratory: Trouble Breathing
Neurological: Dizzy and Weakness
Physical Exam
Vital Signs
Temp Pulse Resp BP Pulse Ox
98.3 F 78 12 157/77 94
08/24/23 11:00 08/24/23 11:00 08/24/23 11:00 08/24/23 11:00 08/24/23 11:00
Lab Results
08/24/23 05:09
08/24/23 05:09
Troponin I < 0.012 ng/ml 08/23/23 20:47
Udw-G-Hdgiwmjthik Pept 286 pg/ml 08/23/23 20:47
Physical Exam
General: Well Developed, Well Nourished and No Apparent Distress
HEENT: Normocephalic and Anicteric
Respiratory: Clear and Non Labored Respirations
Cardiac: S1/S2 (normal), Regular Rhythm, Murmur (none), Peripheral Edema (none) and JVD (none)
GI: Soft and Non Tender
Musculoskeletal: No Clubbing, No Cyanosis and No Edema
Skin: Warm
Neuro: AO x 3
Psych: Calm
Impression / Plan
-
87 year old female with HTN and orthostatic hypotension, non-obstructive CAD, hyperlipidemia, chronic DUNBAR, dizziness/tremor is admitted with HTN urgency, dizziness, tremor.
Dizziness, tremor being evaluated by neurology.
We are consulted for BP management.
# HTN urgency
-SBP over 200 in ED
-meds not tolerated in past per patient notes: coreg, imdur, losartan
-will continue diltiazem 120mg bid
-will try adding hydralazine 10mg tid
#Orthostatic hypotension
-positive orthostatics here
-will need to monitor as we titrate BP meds
# Atrial flutter
-cont diltiazem and eliquis
# Non-obstructive CAD
-stable, no angina
Studies:
�Cardiac catheterization on 12/27/19 revealed nonobstructive coronary artherosclerosis (LAD first diagonal 40% ostial stenosis, circ mild ostial narrowing of 30%)�
Echocardiogram 09/04/2022 showed normal biventricular size and systolic function. No significant valve disease. Estimated pulmonary pressure 25 mmHg.
Holter monitor from 09/02/2022 showed predominant rate and rhythm of sinus rhythm at a rate of 68 bpm. Range was 50-141. No significance pauses or evidence of high-grade AV block. No sustained arrhythmias. Symptoms of shortness of breath and
lightheaded correlated to PVCs on 2 occasions in normal sinus rhythm on 2 occasions.
Data Reviewed
-
EKG: Tracing Personally Visualized and interpreted (NSR, left axis)
Medical Tests (Nuc Med, Echo etc): Report Reviewed by me (reviewed echo, cath, and Holter in my note)
Labs: Labs Reviewed by me
--- NOTE | 2023-08-24 15:05 | PTOTSP ---
ST Acute Care Evaluation
Pt presents with oropharyngeal parameters that are WFL for safe PO intake of all solids and liquids; no overt s/s of penetration/aspiration observed at bedside. Pt is aware of what she can and cannot tolerate in terms of mastication (due to her
ill-fitting dentures), and will order her meals accordingly.
Recommendations:
- Continue with regular solids, thin liquids, meds as tolerated.
- GUIDE TRAVEL to sign off, as no skilled services are indicated at this time. Please re-consult if needed.
[2023-08-24 15:30] LABS: Vitamin B12 316 pg/ml (239-931)
[2023-08-24] MEDS: APRESOLINE 10 MG PO ×2 (17:19→22:10)
[2023-08-24] MEDS: ANTIVERT 25 MG PO (17:19)
--- NOTE | 2023-08-24 18:54 | W.PN.UPDATE ---
Update Note
Progress Note Update
Brain MRI has been reviewed.
Plan:
-PT,
- outpatient neurology follow-up in 2-4-week.
Dr. Jorgensen
[2023-08-24] MEDS: LIPITOR 10 MG PO (21:01)
[2023-08-24] MEDS: CARDIZEM SR 120 MG PO (21:01)
[2023-08-25] VITALS (7 sets, daily range): BP systolic 114–138; BP diastolic 59–79; PULSE 71–80; BMI 26.3
--- NOTE | 2023-08-25 08:06 | W.PN.CD ---
Today's Communication / Plan
-
-Continue diltiazem 120 mg BID and Hydralazine 10 mg TID.
-Echocardiogram ordered for today.
-Ambulate after breakfast and check for symptomatic orthostasis.
Impression / Plan
-
87 year old female with HTN and orthostatic hypotension, non-obstructive CAD, hyperlipidemia, chronic DUNBAR, dizziness/tremor is admitted with HTN urgency, dizziness, tremor.
Dizziness, tremor being evaluated by Neurology.
We are consulted for BP management.
# Labile blood pressure with hypertensive urgency with superimposed orthostatic hypotension
-SBP over 200 in ED
-meds not tolerated in past per patient notes: coreg, imdur, losartan
-Continue diltiazem 120 mg BID and Hydralazine 10 mg TID.
-Echocardiogram ordered for today.
-Ambulate after breakfast and check for symptomatic orthostasis.
# Atrial flutter/PSVT
-cont diltiazem and eliquis
# Non-obstructive CAD
-stable, no angina
Studies:
�Cardiac catheterization on 12/27/19 revealed nonobstructive coronary artherosclerosis (LAD first diagonal 40% ostial stenosis, circ mild ostial narrowing of 30%)�
Echocardiogram 09/04/2022 showed normal biventricular size and systolic function. No significant valve disease. Estimated pulmonary pressure 25 mmHg.
Holter monitor from 09/02/2022 showed predominant rate and rhythm of sinus rhythm at a rate of 68 bpm. Range was 50-141. No significance pauses or evidence of high-grade AV block. No sustained arrhythmias. Symptoms of shortness of breath and
lightheaded correlated to PVCs on 2 occasions in normal sinus rhythm on 2 occasions.
Physical Exam
Vital Signs/Labs
Vital Signs
Temp Pulse Resp BP Pulse Ox
97.9 F 75 16 131/69 94
08/25/23 07:47 08/25/23 07:47 08/25/23 07:47 08/25/23 07:47 08/25/23 07:47
08/24/23 08/25/23 08/26/23
06:59 06:59 06:59
Actual Weight 73.4 kg 71.7 kg
08/24/23 05:09
08/24/23 05:09
Magnesium 2.0 mg/dl (1.6-2.3) 08/23/23 21:57
08/23/23
20:47
Swm-G-Rmlrorvrzrc Pept 286
LAB Results
08/23/23
20:47
Troponin I < 0.012
Physical Exam
Constitutional: No acute distress and Comfortable
EENT: Anicteric
Cardiovascular: Rhythm & rate is regular, Pedal edema is absent, Systolic murmur absent and S1S2 is normal
Respiratory: Respiratory effort normal and Lungs clear to auscul.
GI: Soft
Neuro/Psych: AO x 3
Other: Skin (Warm, dry, intact)
Data Reviewed
-
Date of Service: August 25, 2023
EKG: Tracing Personally Visualized and interpreted (PSVT, sinus rhythm)
Medical Tests (PFT, Pathology etc): Discussed with Patient
Labs: Labs Reviewed by me
[2023-08-25] MEDS: APRESOLINE 10 MG PO ×3 (09:30→21:41)
[2023-08-25] MEDS: ELIQUIS 5 MG PO ×2 (09:30→20:20)
[2023-08-25] MEDS: CARDIZEM SR 120 MG PO ×2 (09:30→20:19)
[2023-08-25] MEDS: PROTONIX 40 MG PO (09:31)
--- NOTE | 2023-08-25 11:10 | CARDSERVLU ---
Echocardiogram with Lumason completed after protocol screening completed. Allergies verified.
Patent IV site: _R AC____
IV site flushed with 0.9% NaCl pre and post administration.
Diluted bolus method utilized to enhance visualization of ventricular harley.
Total volume given: __2.5__ mL
Patient tolerated all procedures well without complications.
--- NOTE | 2023-08-25 14:48 | W.PN.HOSP.TC ---
Today's Communication/Plan
-
Watch BP
Teds - Knee high first , thigh high if possible.
Discharge planning
Assessment / Plan
Assessment / Plan
A/P:� Patient is an 88y F with PMH significant for A-Fib, HTN and ILD who presents to ED complaining of dizziness.
CVS: S1-S2 normal
Chest: CTA B/L
Abdomen: Soft, NT / Bowel sounds present
Extremities: No edema, normal pulses
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
#Dizziness
Uncontrolled Hypertension on admission
Pt takes Diltiazem CD 120 daily and follows with Dr. Richardson
Hydralazine 10 mg 3 times daily added
- Patient reports symptoms x months - but worse over the past week.
�- Normal troponin, no chest pain, no significant albuminuria, etc.
�- Patient describes clear vertiginous symptoms, but also has positive tilt in the ED with decrease in systolic pressure from 200 to 140.
�- MRI of the brain without any acute changes
�- Neuro evaluated
�- Review of outpatient records show prior Rx for meclizine suggestive previous episodes of vertigo as well.
- Echo 08/24/2023-normal LV size and function. EF 60 to 65%. Trace MR, trace TR
#Paroxysmal Atrial Flutter /SVT
�- Stable.� Currently in sinus rhythm. Continue Cardizem
�- Continue Eliquis for stroke risk reduction.
# Interstitial Lung Disease
�- Patient reports chronic subjective dyspnea - but no significant hypoxemia and not on home O2.
�- Monitor for any new symptoms / complaints.
# Non-obstructive CAD
# Hyperlipidemia-continue simvastatin
# GERD-continue PPI
# Depression-continue Lexapro
#DVT Prophylaxis:� On Eliquis
#Code Status:� Full
Left a message for Son.
Part of this note was created using voice recognition system. Occasional wrong word or��sound alike� substitutions may have inadvertently occurred due to the inherent limitations of voice recognition software. If noted kindly bring it to my
attention for correction.
Anticipated Discharge: Within 24 hours
Subjective/Interval History
-
Date of Service: August 25, 2023
Objective Data
-
Vital Signs:
Vital Signs
Temp Pulse Resp BP Pulse Ox
98.2 F 71 17 137/61 93
08/25/23 11:44 08/25/23 11:44 08/25/23 11:44 08/25/23 11:44 08/25/23 11:44
I&O
08/24/23 08/25/23 08/26/23
06:59 06:59 06:59
Intake Total 480 / 480 600 / 600
Output Total 650 / 650 200 / 200 150 / 150
Balance -170 / -170 400 / 400 -150 / -150
--- NOTE | 2023-08-25 16:24 | CM ---
Alert awake oriented patient who lives at [facility] . She is independent in all activities of daily living. She uses a walker. She has no steps to enter apartment.Need PT OT for dc planning .
Had [facility] Hx /[facility] hx
Pharmacy [facility] Cory Tillman
PCP Frandy
PLAN Will need PT OT for dc planning
[2023-08-25 17:19] LABS: Calcium 9.7 mg/dl (8.4-10.2)
[2023-08-25] MEDS: VITAMIN B-12 1000 MCG PO (17:56)
[2023-08-25] MEDS: LIPITOR 10 MG PO (21:41)
[2023-08-26] VITALS (7 sets, daily range): BP systolic 96–159; BP diastolic 60–109; PULSE 76–129; O2SAT 96–97
--- NOTE | 2023-08-26 08:40 | W.PN.CD ---
Today's Communication / Plan
-
-Continue diltiazem 120 mg BID and Hydralazine 10 mg TID; blood pressure now appears to be relatively stable.
-Echocardiogram yesterday revealed normal cardiac function and no significant valvulopathy.
-No further cardiac recommendations at this time; outpatient follow-up with Cardiology.
Impression / Plan
-
87 year old female with HTN and orthostatic hypotension, non-obstructive CAD, hyperlipidemia, chronic DUNBAR, dizziness/tremor is admitted with HTN urgency, dizziness, tremor.
Dizziness, tremor being evaluated by Neurology.
We are consulted for BP management.
# Labile blood pressure with hypertensive urgency with superimposed orthostatic hypotension
-SBP over 200 in ED
-meds not tolerated in past per patient notes: coreg, imdur, losartan
-Continue diltiazem 120 mg BID and Hydralazine 10 mg TID; blood pressure now appears to be relatively stable.
-Echocardiogram yesterday revealed normal cardiac function and no significant valvulopathy.
# Atrial flutter/PSVT
-Continue current dose of Cardizem CD; continue Eliquis.
# Non-obstructive CAD
-stable, no angina
Studies:
�Cardiac catheterization on 12/27/19 revealed nonobstructive coronary artherosclerosis (LAD first diagonal 40% ostial stenosis, circ mild ostial narrowing of 30%)�
Echocardiogram 09/04/2022 showed normal biventricular size and systolic function. No significant valve disease. Estimated pulmonary pressure 25 mmHg.
Holter monitor from 09/02/2022 showed predominant rate and rhythm of sinus rhythm at a rate of 68 bpm. Range was 50-141. No significance pauses or evidence of high-grade AV block. No sustained arrhythmias. Symptoms of shortness of breath and
lightheaded correlated to PVCs on 2 occasions in normal sinus rhythm on 2 occasions.
Physical Exam
Vital Signs/Labs
Vital Signs
Temp Pulse Resp BP Pulse Ox
98.2 F 62 18 156/63 94
08/26/23 07:30 08/26/23 07:30 08/26/23 07:30 08/26/23 07:30 08/26/23 07:30
08/25/23 08/26/23 08/27/23
06:59 06:59 06:59
Actual Weight 71.7 kg
08/24/23 05:09
08/24/23 05:09
Magnesium 2.0 mg/dl (1.6-2.3) 08/23/23 21:57
08/23/23
20:47
Yoy-Q-Kqurzbokjyq Pept 286
LAB Results
08/23/23
20:47
Troponin I < 0.012
Physical Exam
Constitutional: No acute distress and Comfortable
EENT: Anicteric
Cardiovascular: Rhythm & rate is regular, Pedal edema is absent, Systolic murmur absent and S1S2 is normal
Respiratory: Respiratory effort normal and Lungs clear to auscul.
GI: Soft
Neuro/Psych: AO x 3
Other: Skin (Warm, dry, intact)
Data Reviewed
-
Date of Service: August 26, 2023
Echo: Tracing Personally Visualized and interpreted (LVEF 60-65%)
Labs: Labs Reviewed by me
[2023-08-26] MEDS: PROTONIX 40 MG PO (09:21)
[2023-08-26] MEDS: ELIQUIS 5 MG PO ×2 (09:21→21:17)
[2023-08-26] MEDS: VITAMIN B-12 1000 MCG PO (09:21)
[2023-08-26] MEDS: CARDIZEM SR 120 MG PO ×2 (09:21→21:16)
[2023-08-26] MEDS: TYLENOL 650 MG PO (09:29)
[2023-08-26] MEDS: APRESOLINE 10 MG PO ×3 (09:30→21:19)
[2023-08-26 09:35] LABS: Intact PTH 48.5 pg/ml (13.6-85.8)
--- NOTE | 2023-08-26 13:16 | CM ---
PT OT recommended SNF.
Spoke with son Roscoe reviewed PT masha.
Son requested [facility]. REferral placed in care port.
[facility] need auth
PLAN to SNF after located and auth obtained
--- NOTE | 2023-08-26 14:14 | W.PN.HOSP.TC ---
Addendum entered and electronically signed by Floridalma Henson MD 08/26/23 14:35:
Went back to see pt as son came to visit.
Spoke to Son Josh at bed side updated.
Plan discussed.
Original Note:
Today's Communication/Plan
-
Start Augmentin
Teds and Binder
Discharge planning
Assessment / Plan
Assessment / Plan
A/P:� Patient is an 88y F with PMH significant for A-Fib, HTN and ILD who presents to ED complaining of dizziness.
CVS: S1-S2 normal
Chest: few rales
Abdomen: Soft, NT / Bowel sounds present
Extremities: No edema, normal pulses
APPRAISAL SPECIALIST: Non focal exam
# Dizziness
Uncontrolled Hypertension on admission
Pt takes Diltiazem CD 120 daily and follows with Dr. Richardson
Hydralazine 10 mg 3 times daily added
- Patient reports symptoms for months - but worse over the past week.
�- Normal troponin, no chest pain, no significant albuminuria
�- Patient describes clear vertiginous symptoms, but also has positive tilt in the ED with decrease in systolic pressure from 200 to 140.
�- MRI of the brain without any acute changes
�- Neuro evaluated
�- Review of outpatient records show prior Rx for meclizine suggestive previous episodes of vertigo as well.
- Echo 08/24/2023-normal LV size and function. EF 60 to 65%. Trace MR, trace TR
- Teds need to be placed, also abdominal binder ( pt doesn't have them on now) when we check Orthostatics
# UTI- with frequency- Start Augmentin
# Paroxysmal Atrial Flutter /SVT
�- Stable.� Currently in sinus rhythm. Continue Cardizem
�- Continue Eliquis for stroke risk reduction.
# Interstitial Lung Disease
�- Patient reports chronic subjective dyspnea - but no significant hypoxemia and not on home O2.
�- Monitor for any new symptoms / complaints.
# Non-obstructive CAD
# Hyperlipidemia-continue simvastatin
# GERD-continue PPI
# Depression-continue Lexapro
# DVT Prophylaxis:� On Eliquis
# Code Status:� Full
D/W RN
Left message for son again today
D/W Case management.
Part of this note was created using voice recognition system. Occasional wrong word or��sound alike� substitutions may have inadvertently occurred due to the inherent limitations of voice recognition software. If noted kindly bring it to my
attention for correction.
Anticipated Discharge: Within 24 hours
Subjective/Interval History
-
Date of Service: August 26, 2023
Objective Data
-
Vital Signs:
Vital Signs
Temp Pulse Resp BP Pulse Ox
98.2 F 78 18 159/75 94
08/26/23 11:30 08/26/23 11:30 08/26/23 11:30 08/26/23 11:30 08/26/23 11:30
I&O
08/25/23 08/26/23 08/27/23
06:59 06:59 06:59
Intake Total 600 / 600 540 / 540 240 / 240
Output Total 200 / 200 150 / 150 400 / 400
Balance 400 / 400 390 / 390 -160 / -160
[2023-08-26] MEDS: AUGMENTIN 875 MG/125 MG 1 TABLET PO ×2 (14:47→21:17)
[2023-08-26 14:54] LABS: Hematocrit 44.6 % (37.0-47.0); Hemoglobin 14.7 g/dL (12.0-16.0); Mean Corpuscular Volume 97.2 fL (81.0-99.0); Mean Platelet Volume 10.8 fL (7.4-10.4); Platelet Count 197 10^3/uL (130-400); Red Blood Cell Count 4.59 10^6/uL (4.20-5.40); White Blood Cell Count 11.3 10^3/uL (4.8-10.8)
[2023-08-26 15:10] LABS: Blood Urea Nitrogen 29 mg/dl (7-17); Calcium 9.7 mg/dl (8.4-10.2); Carbon Dioxide 25 mmol/L (22-30); Chloride 98 mmol/L (98-107); Estimated Creatinine Clearance 35 ml/min; Glucose 176 mg/dl (70-99); Potassium 4.5 mmol/L (3.5-5.1); Sodium 133 mmol/L (135-145); eGFR 54.19
[2023-08-26] MEDS: LIPITOR 10 MG PO (21:19)
[2023-08-26] MEDS: ANTIVERT 25 MG PO (21:21)
[2023-08-27] VITALS (9 sets, daily range): BP systolic 99–165; BP diastolic 57–85; PULSE 84–126; BMI 26.5
--- NOTE | 2023-08-27 03:32 | DOWNTIME ---
There was a [facility] Downtime on 08/27/2023 from 0100 to 08/27/2023 at 0322. Downtime documentation of patient's care, including medication administrations, has been reconciled in the electronic record per guidelines. Refer to the
patient's paper chart under the miscellaneous tab to see printed paper medication records and downtime forms.
[2023-08-27] MEDS: CARDIZEM SR 120 MG PO ×2 (08:48→20:03)
[2023-08-27] MEDS: AUGMENTIN 875 MG/125 MG 1 TABLET PO ×2 (08:49→20:03)
[2023-08-27] MEDS: VITAMIN B-12 1000 MCG PO (08:49)
[2023-08-27] MEDS: PROTONIX 40 MG PO (08:49)
[2023-08-27] MEDS: ELIQUIS 5 MG PO ×2 (08:49→20:04)
[2023-08-27] MEDS: APRESOLINE 10 MG PO ×3 (08:49→21:34)
[2023-08-27 09:00] LABS: Glycohemoglobin (HgbA1c) 6.3 % (4.0-5.6)
--- NOTE | 2023-08-27 13:52 | W.PN.HOSP.TC ---
Addendum entered and electronically signed by Floridalma Henson MD 08/27/23 15:46:
orthostatic hypotension
Original Note:
Today's Communication/Plan
-
Medically stable for discharge to rehab
D/W case management
Assessment / Plan
Assessment / Plan
A/P:� Patient is an 88y F with PMH significant for A-Fib, HTN and ILD who presents to ED complaining of dizziness.
CVS: S1-S2 normal
Chest: few rales
Abdomen: Soft, NT / Bowel sounds present
Extremities: No edema, normal pulses
UTILITY LOCATE TECHNICIAN: Non focal exam
Sitting in a chair
# Dizziness
Uncontrolled Hypertension on admission
Pt takes Diltiazem CD 120 daily [address] follows with Dr. Richardson
Hydralazine 10 mg 3 times daily added
- Patient reports symptoms for months - but worse over the past week.
�- Normal troponin, no chest pain, no significant albuminuria
�- Patient describes clear vertiginous symptoms, but also has positive tilt in the ED with decrease in systolic pressure from 200 to 140.
�- MRI of the brain without any acute changes
�- Neuro evaluated
�- Review of outpatient records show prior Rx for meclizine suggestive previous episodes of vertigo as well.
- Echo 08/24/2023-normal LV size and function. EF 60 to 65%. Trace MR, trace TR
- Teds , abdominal binder ( pt doesn't have them on now) when we check Orthostatics
# UTI- with frequency- Started Augmentin
# Paroxysmal Atrial Flutter /SVT
�- Stable.� Currently in sinus rhythm. Continue Cardizem
�- Continue Eliquis for stroke risk reduction.
# Interstitial Lung Disease
�- Patient reports chronic subjective dyspnea - but no significant hypoxemia and not on home O2.
�- Monitor for any new symptoms / complaints.
# Non-obstructive CAD
# Hyperlipidemia-continue simvastatin
# GERD-continue PPI
# Depression-continue Lexapro
# DVT Prophylaxis:� On Eliquis
# Code Status:� Full
D/W RN
D/W Son yesterday
D/W Case management.
Part of this note was created using voice recognition system. Occasional wrong word or��sound alike� substitutions may have inadvertently occurred due to the inherent limitations of voice recognition software. If noted kindly bring it to my
attention for correction.
Anticipated Discharge: Today
Subjective/Interval History
-
Date of Service: August 27, 2023
Objective Data
-
Vital Signs:
Vital Signs
Temp Pulse Resp BP Pulse Ox
97.5 F 60 18 148/66 94
08/27/23 11:00 08/27/23 11:00 08/27/23 11:00 08/27/23 11:00 08/27/23 11:00
I&O
08/26/23 08/27/23 08/28/23
06:59 06:59 06:59
Intake Total 540 / 540 1560 / 1560
Output Total 150 / 150 400 / 400
Balance 390 / 390 1160 / 1160
--- NOTE | 2023-08-27 14:30 | PN.CDI ---
CDI
- -
CDI:
Physician Documentation Request
Admit Date: 08/23/23 23:38
Dear Doctor Sixto,
Please review the following and provide your response in the progress notes.
Clinical Indicators:
PN, 08/23
#Dizziness
#Uncontrolled Hypertension
#...- Patient describes clear vertiginous symptoms,
#...but also has positive tilt in the ED with decrease in systolic pressure from 200 to 140.
#- Neuro evaluation given orthostasis, tremors / tremulousness and gait dysfunction.
#...- ? Multisystem organ dysfunction / Parkinsonism given constellation of symptoms.
#- ...show prior Rx for meclizine suggestive previous episodes of vertigo as well.
Neuro consult, 08/23
#...has had intermittent lightheadedness provoked with
#...standing with associated imbalance and
#...shakiness that has worsened over the last 2-week.
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
#II. Orthostatic hypotension
#III. Distal symmetric large fiber polyneuropathy
#IV. Ambulatory dysfunction
Cardiology PN, 08/25
#...HTN and orthostatic hypotension, non-obstructive CAD,hyperlipidemia,
#...chronic DUNBAR, dizziness/tremor is admitted with HTN urgency, dizziness, tremor.
# Labile blood pressure with hypertensive urgency with superimposed orthostatic hypotension
#...-SBP over 200 in ED
Based on the above and your clinical assessment, please clarify in the progress notes, the appropriate diagnosis, if significant, that supports the above abnormalities and additional evaluation, monitoring and/or treatment rendered:
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
Orthostatic hypotension
Uncontrolled hypertension
Other(please specify)
Use of terms such as suspected, likely, concern for, or probable (associated with a specific diagnosis that is being evaluated, monitored, or treated as if it exists) are acceptable and can be coded in the inpatient setting, when documented at the
time of discharge.
Thank you,
Fanta Urrutia RN BSN CCDS
CDI Specialist
please contact via tiger text
Please use your independent medical judgment in providing your response.
--- NOTE | 2023-08-27 15:04 | CM ---
[facility] at [facility] checked pts insurance and she has accepted her.
Called [facility] [phone] spoke with Wellington moore Pending auth # [id number] Clinical faxed to [phone].
Awaiting auth for SNF.
Pts son Josh said he could transport her to SNF.
[facility]
report [phone]
fax [phone]
PLAN To [facility] after auth obtained
[2023-08-27] MEDS: LIPITOR 10 MG PO (21:34)
[2023-08-28 03:40] VITALS: BP 149/75
[2023-08-28 06:00] VITALS: BMI 26.5
[2023-08-28 07:00] VITALS: BP 162/67
[2023-08-28] MEDS: APRESOLINE 10 MG PO (08:15)
[2023-08-28] MEDS: ELIQUIS 5 MG PO (08:15)
[2023-08-28] MEDS: CARDIZEM SR 120 MG PO (08:15)
[2023-08-28] MEDS: AUGMENTIN 875 MG/125 MG 1 TABLET PO (08:15)
[2023-08-28] MEDS: PROTONIX 40 MG PO (08:15)
[2023-08-28] MEDS: VITAMIN B-12 1000 MCG PO (08:15)
[2023-08-28 09:27] VITALS: BP 105/84; BP 150/89; BP 164/85; PULSE 87; O2SAT 96
[2023-08-28 10:10] LABS: Albumin 3.68 g/dL (3.75-5.01); Alpha 2 Globulin 0.72 g/dL (0.48-1.05); SPEP IFE Reflex Not Done; Total Protein-Electrophoresis 6.3 g/dL (6.3-8.2)
[2023-08-28 11:00] VITALS: BP 140/80
--- NOTE | 2023-08-28 12:31 | W.PN.HOSP.TC ---
Addendum entered and electronically signed by Floridalma Henson MD 08/28/23 13:27:
D/W [facility] management
Pt has Auth
D/W SOn Josh
Updated.
Discharge time 34 min
Original Note:
Today's Communication/Plan
-
Auth awaited for discharge
Assessment / Plan
Assessment / Plan
A/P:� Patient is an 88y F with PMH significant for A-Fib, HTN and ILD who presents to ED complaining of dizziness.
CVS: S1-S2 normal
Chest: few rales
Abdomen: Soft, NT / Bowel sounds present
Extremities: No edema, normal pulses
CERTIFIED NUCLEAR MEDICINE TECHNOLOGIST: Non focal exam
Sitting in a chair
# Dizziness
Uncontrolled Hypertension on admission
Pt takes Diltiazem CD 120 daily and follows with Dr. Richardson
Hydralazine 10 mg 3 times daily added
- Patient reports symptoms for months - but worse over the past week.
�- Normal troponin, no chest pain, no significant albuminuria
�- Patient describes clear vertiginous symptoms, but also has positive tilt in the ED with decrease in systolic pressure from 200 to 140.
�- MRI of the brain without any acute changes
�- Neuro evaluated
�- Review of outpatient records show prior Rx for meclizine suggestive previous episodes of vertigo as well.
- Echo 08/24/2023-normal LV size and function. EF 60 to 65%. Trace MR, trace TR
- Teds , abdominal binder
# UTI- with frequency- Started Augmentin
# Pre DM per [id number] aware
# Paroxysmal Atrial Flutter /SVT
�- Stable.� Currently in sinus rhythm. Continue Cardizem
�- Continue Eliquis for stroke risk reduction.
# Interstitial Lung Disease
�- Patient reports chronic subjective dyspnea - but no significant hypoxemia and not on home O2.
�- Monitor for any new symptoms / complaints.
# Non-obstructive CAD
# Hyperlipidemia-continue simvastatin
# GERD-continue PPI
# Depression-continue Lexapro
# DVT Prophylaxis:� On Eliquis
# Code Status:� Full
D/W RN
D/W Case management.
Part of this note was created using voice recognition system. Occasional wrong word or��sound alike� substitutions may have inadvertently occurred due to the inherent limitations of voice recognition software. If noted kindly bring it to my
attention for correction.
Anticipated Discharge: Today
Subjective/Interval History
-
Date of Service: August 28, 2023
Objective Data
-
Vital Signs:
Vital Signs
Temp Pulse Resp BP Pulse Ox
98.4 F 69 18 162/67 94
08/28/23 07:00 08/28/23 07:00 08/28/23 07:00 08/28/23 07:00 08/28/23 07:00
I&O
08/27/23 08/28/23 08/29/23
06:59 06:59 06:59
Intake Total 1560 / 1560 420 / 420
Output Total 400 / 400
Balance 1160 / 1160 420 / 420
--- NOTE | 2023-08-28 12:43 | CM ---
[facility] at [facility] accepted her.
Allen Mcgarry called from [facility] [phone] Ref # [id number] approved 08/28/23 to 09/01/23 .Clinical faxed to [phone]. NRD to Yamileth Connor
[facility] aware .
Pts son Josh aware and can transport her to SNF.
IMM reviewed signed on chart.
[facility]
report [phone]
fax [phone]
PLAN To [facility]
--- NOTE | 2023-08-28 13:24 | W.DS.TRANS ---
Addendum entered and electronically signed by Floridalma Henson MD 08/28/23 15:23:
Dictation- [id number]
Original Note:
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
-
Discharge Instructions:
Discharge Diagnosis/Procedures Orthostatic hypotension, UTI, paroxysmal atrial
flutter, interstitial lung disease,
nonobstructive coronary disease, hyperlipidemia,
GERD, depression, Pre diabetes
Diet As tolerated
Activity As tolerated
Driving Restrictions No driving
Blood Work HbA1C 3 months. CBC,BMP 1 week.
Other Services PT,OT
Instructions: Orthostatic hypotension
Orthostatic Hypotension (DC)
Stand-Alone Forms:
Changes to Home Medications: Yes
Discharge Medications:
DC Medications w/original date entered in [facility]
omeprazole 20 mg capsule,delayed release 20 mg PO DAILY Gastrointestinal issue 03/09/10
ascorbic acid (vitamin C) 500 mg tablet (Vitamin C) 1,000 mg PO DAILY Supplement ##0 03/22/16
calcium carbonate 500 mg-vitamin D3 3.125 mcg (125 unit) tablet 1 tab PO DAILY Supplement ##0 03/22/16
escitalopram oxalate 5 mg tablet 5 mg PO DAILY Mental Health 10/19/18
simvastatin 10 mg tablet 10 mg PO HS High cholesterol 10/19/18
PreserVision AREDS 1 tab PO Daily Supplement 08/25/23
diltiazem HCl 120 mg capsule,extended release 12 hr 120 mg PO BID Heart Failure 08/25/23
acetaminophen 325 mg tablet 650 mg (2 x 325 mg) PO Q4HWA Pain #0 tabs 08/26/23
amoxicillin 875 mg-potassium clavulanate 125 mg tablet 1 tab PO Q12 Infection #0 tabs 08/26/23
apixaban 5 mg tablet (Eliquis) 5 mg PO BID Blood clot prevention/tx #30 tabs 08/26/23
cholecalciferol (vitamin D3) 50 mcg (2,000 unit) tablet 2,000 unit PO DAILY Supplement #0 tabs 08/26/23
cyanocobalamin (vitamin B-12) 1,000 mcg tablet 1,000 mcg PO DAILY Supplement #0 tabs 08/26/23
hydralazine 10 mg tablet 10 mg PO TID Blood pressure #0 tabs 08/26/23
meclizine 25 mg tablet 25 mg PO Q8HPRN PRN Dizziness #0 tabs 08/26/23
Home Medication Changes
new
cyanocobalamin (vitamin B-12) 1,000 mcg tablet 1,000 mcg PO DAILY Supplement #0 tabs 08/26/23
hydralazine 10 mg tablet 10 mg PO TID Blood pressure #0 tabs 08/26/23
meclizine 25 mg tablet 25 mg PO Q8HPRN PRN Dizziness #0 tabs 08/26/23
Pending Results: No
[2023-08-28 15:00] VITALS: BP 168/74
[2023-08-29 06:56] LABS: Vitamin B1, Whole Blood 130 nmol/L (70-180)
== END 2023-08-28 16:07 | DRG 312 ==
LOC: 3 WEST ACU 23:38
PROVIDERS: Physician Assistant; ADMITTING PHYSICIAN Hospitalist; ATTENDING PHYSICIAN Hospitalist; CONSULT PHYSICIAN Internal Medicine; CONSULT PHYSICIAN Psychiatry & Neurology Neurology; EMERGENCY PHYSICIAN Emergency Medicine; FAMILY PHYSICIAN Internal Medicine
DX: I95.1 Orthostatic hypotension (principal); J84.9 Interstitial pulmonary disease, unspecified; I48.92 Unspecified atrial flutter; N39.0 Urinary tract infection, site not specified; I48.0 Paroxysmal atrial fibrillation; G20.C Parkinsonism, unspecified; G62.9 Polyneuropathy, unspecified; I16.0 Hypertensive urgency; I10 Essential (primary) hypertension; I25.10 Atherosclerotic heart disease of native coronary artery without angina pectoris; E78.00 Pure hypercholesterolemia, unspecified; K21.9 Gastro-esophageal reflux disease without esophagitis; Z11.52 Encounter for screening for COVID-19; Z79.01 Long term (current) use of anticoagulants
CPT/HCPCS: 51701; 70450; 70551; 71046; 80048; 80053; 81003; 81015; 82607; 83036; 83735; 83880; 83970; 84100; 84155; 84165; 84425; 84443; 84484; 85025; 85027; 87070; 87077; 87086; 87186; 87502; 87811; 92610; 93005; 93306; 96361; 96374; 97162; 97166; 97530; 97535; 99285; Q9950

== ENCOUNTER → 2023-09-02 09:22 | Outpatient (REF) | payer MEDICARE, SELFPAY ==
[2023-09-02 09:38] LABS: % Basophils 0.8 % (0-2); % Eosinophils 3.3 % (0-6); % Immature Granulocytes 0.3 % (0-0.5); % Lymphocytes 32.2 % (20.5-51.1); % Monocytes 9.3 % (1.7-9.3); % Neutrophils 54.1 % (42.2-75.2); Absolute Basophils 0.1 10^3/uL (0-0.2); Absolute Eosinophils 0.2 10^3/uL (0-0.7); Absolute Monocytes 0.6 10^3/uL (0.1-0.6); Absolute Neutrophils 3.3 10^3/uL (1.4-6.5); Hematocrit 34.3 % (37.0-47.0); Hemoglobin 11.3 g/dL (12.0-16.0); Mean Corp Hgb Conc. 32.9 g/dL (33.0-37.0); Mean Corpuscular Hgb 31.7 pg (27.0-31.0); Mean Corpuscular Volume 96.3 fL (81.0-99.0); Mean Platelet Volume 11.4 fL (7.4-10.4); Nucleated Red Blood Cells % 0 %; Platelet Count 205 10^3/uL (130-400); Red Blood Cell Count 3.56 10^6/uL (4.20-5.40); Red Cell Dist. Width 12.7 % (11.5-14.5); White Blood Cell Count 6.1 10^3/uL (4.8-10.8)
[2023-09-02 18:12] LABS: Blood Urea Nitrogen 23 mg/dl (7-17); Calcium 9.8 mg/dl (8.4-10.2); Carbon Dioxide 21 mmol/L (22-30); Chloride 105 mmol/L (98-107); Glucose 105 mg/dl (70-99); Potassium 4.5 mmol/L (3.5-5.1); Sodium 137 mmol/L (135-145); eGFR > 60.00
== END ==
LOC: OLABP 09:22
PROVIDERS: ATTENDING PHYSICIAN Family Medicine
DX: E87.5 Hyperkalemia (principal); L03.116 Cellulitis of left lower limb
CPT/HCPCS: 36415; 80048; 85025

== ENCOUNTER → 2023-09-04 11:13 | Outpatient (REF) | payer OTHER, MEDICARE, SELFPAY ==
[2023-09-04 11:56] LABS: % Basophils 0.9 % (0-2); % Eosinophils 3.2 % (0-6); % Immature Granulocytes 0.4 % (0-0.5); % Lymphocytes 28.1 % (20.5-51.1); % Monocytes 8.4 % (1.7-9.3); Absolute Basophils 0.1 10^3/uL (0-0.2); Absolute Eosinophils 0.3 10^3/uL (0-0.7); Absolute Lymphocytes 2.3 10^3/uL (1.2-3.4); Absolute Monocytes 0.7 10^3/uL (0.1-0.6); Absolute Neutrophils 4.8 10^3/uL (1.4-6.5); Hematocrit 35.1 % (37.0-47.0); Hemoglobin 11.6 g/dL (12.0-16.0); Mean Corpuscular Hgb 31.7 pg (27.0-31.0); Mean Corpuscular Volume 95.9 fL (81.0-99.0); Mean Platelet Volume 11.3 fL (7.4-10.4); Nucleated Red Blood Cells % 0 %; Platelet Count 220 10^3/uL (130-400); Red Blood Cell Count 3.66 10^6/uL (4.20-5.40); Red Cell Dist. Width 12.7 % (11.5-14.5); White Blood Cell Count 8.2 10^3/uL (4.8-10.8)
[2023-09-04 13:24] LABS: Blood Urea Nitrogen 25 mg/dl (7-17); Calcium 8.8 mg/dl (8.4-10.2); Carbon Dioxide 28 mmol/L (22-30); Chloride 105 mmol/L (98-107); Glucose 107 mg/dl (70-99); Potassium 4.1 mmol/L (3.5-5.1); Sodium 135 mmol/L (135-145); eGFR > 60.00
== END ==
LOC: OLABP 11:13
PROVIDERS: ATTENDING PHYSICIAN Family Medicine
DX: I48.0 Paroxysmal atrial fibrillation (principal); J84.9 Interstitial pulmonary disease, unspecified; I25.10 Atherosclerotic heart disease of native coronary artery without angina pectoris; I16.0 Hypertensive urgency; N39.0 Urinary tract infection, site not specified; B96.20 Unspecified Escherichia coli [E. coli] as the cause of diseases classified elsewhere
CPT/HCPCS: 36415; 80048; 85025

== ENCOUNTER → 2023-09-08 15:15 | Outpatient (REF) | payer MEDICARE, SELFPAY ==
[2023-09-08 16:23] LABS: Blood Urea Nitrogen 26 mg/dl (7-17); Calcium 8.9 mg/dl (8.4-10.2); Carbon Dioxide 27 mmol/L (22-30); Chloride 103 mmol/L (98-107); Glucose 114 mg/dl (70-99); Potassium 4.5 mmol/L (3.5-5.1); Sodium 134 mmol/L (135-145); eGFR > 60.00
== END ==
LOC: OLABP 15:15
PROVIDERS: ATTENDING PHYSICIAN Family Medicine
DX: R79.89 Other specified abnormal findings of blood chemistry (principal)
CPT/HCPCS: 36415; 80048

== ENCOUNTER → 2023-11-04 11:45 | Outpatient (REF) | payer MEDICARE, SELFPAY | LOC: DHCBC/DCA 11:45 | PROVIDERS: ATTENDING PHYSICIAN Nurse Practitioner Gerontology; FAMILY PHYSICIAN Internal Medicine | DX: R06.02 Shortness of breath (principal); I25.10 Atherosclerotic heart disease of native coronary artery without angina pectoris | CPT/HCPCS: 78452; 93017; A9500; J2785 ==

== ENCOUNTER 2024-01-07 21:03 | Observation (INO) | payer MEDICARE, SELFPAY ==
[2024-01-07] VITALS (12 sets, daily range): BP systolic 160–217; BP diastolic 60–137; BMI 28.9; BMI 27.2
--- NOTE | 2024-01-07 16:27 | ED.GENMED ---
History of Present Illness
<Jax Sullivan Crystal, DO - Last Filed: 01/07/24 16:58>
General
Chief Complaint: Weakness
Time Seen by Provider: 01/07/24 16:25
<Trang Marks MD, Resident - Last Filed: 01/09/24 17:00>
History of Present Illness
History of Present Illness:
88 yo female who presented to ER today after she fall down in her apartment. She reported that she was feeling shaky and weak today. She stated that she did not fall down suddenly and she slowed her falling down not to hurt herself. She denied
hitting her head or pain on extremities, head or back. She denied chest pain. She reported that she did not take her any regular medication today due feeling weak. She reported feeling she can not empty enough her bladder recently. Denied burning
sensation while urinating.
If applicable-neuro sx onset
Date of onset of symptoms: 01/07/24
Past History
<Trang Marks MD, Resident - Last Filed: 01/09/24 17:00>
Past History
ED Past Medical History: GERD, HTN, Hypercholesterolemia and Other (Hiatal hernia, arthritis )
ED Past Surgical History: Appendectomy, Orthopedic (Bilateral knee replacement ) and Tonsilectomy
Social History
Tobacco: Non-smoker
Alcohol: Occasional
Drug: None
Employment: Retired
Family History
Family History: Other (Non-contributory )
Phy Exam
<Trang Marks MD, Resident - Last Filed: 01/09/24 17:00>
General Physical Exam
General Presentation: no apparent distress
General age: appears stated age
General Skin: dry
General Mental: alert
Eye Exam
Eye Exam: EOMI and conjunctiva normal
Pulmonary Exam
Pulmonary Exam: lungs clear, chest non tender, no stridor, no wheezing and other (Interstitial lung disease (chronic) )
Gastrointestinal Exam
Gastrointestinal Exam: non tender and soft
Neurological Exam
Neurological Exam: alert, oriented x3, no motor deficits, no sensory deficits and speech normal
Cerebellar
Cerebellar Function: normal finger to nose
Course
<Jax Sullivan Crystal, DO - Last Filed: 01/07/24 16:58>
Orders/Labs/Results
Orders:
Orders
01/07/24 Breakfast
Regular
At Your Request: Full Participation
Does patient need a safe tray?: No
01/07/24 16:49
Straight cath- Treatment ONCE
HydrALAZINE [Apresoline] 10 mg IV NOW STA
01/07/24 16:54
0.9% Sodium Chloride 500 ml [Nss] 500 ml IV BOLUS
01/07/24 17:12
Basic Metabolic Panel Urgent
Complete Blood Count/With Diff Urgent
TSH Reflex To Free T4 Urgent
01/07/24 17:53
Urinalysis Reflex To Culture Urgent
Date Specimen was Collected: 01/07/24
Time Specimen was Collected: 17:51
01/07/24 19:57
Admit/Transfer Patient As Directed
Co-Sign Provider:
Level of Care: Observation services
Assign to:: Telemetry
Physician / Group: Juan Antonio
Diagnosis: Ambulatory Dysfunction
Reason for Telemetry: Arrhythmia
Date to Stop Telemetry: 01/10/24
Time to Stop Telemetry: 11:00
01/07/24 19:58
PRN Pain Medication Management As Directed
May give lesser potent ordered pain med per pt: Yes
preference::
Protocol:: Medication orders for pain may be administered in a
manner that supports deferring to patient preference
when the pt is:
- Requesting an ordered lesser potent pain medication.
Least to most potent pain medications are defined
as: acetaminophen < NSAID < tramadol < opioids
(morphine, oxycodone, hydromorphone).
- Requesting a lesser dose of the same medication IF
ORDERED.
- Requesting a less intrusive route of administration
if both routes are prescribed by the provider (PO <
IV).
01/07/24 20:00
Code Status As Directed
Resuscitation Status: Full Code
01/07/24 20:57
UROLOGY CONSULT Routine
Consulting Provider: Karl Eubanks
Was physician already notified: Yes
01/07/24 22:16
Acetaminophen [Tylenol] 650 mg PO Q4HPRN PRN
Apixaban [Eliquis] 5 mg PO BID
Diltiazem Sustained Release [Cardizem Sr] 120 mg PO BID
HydrALAZINE [Apresoline] 10 mg PO TID
01/07/24 22:16
Activity As Directed
Activity Level: Out of Bed-Early Mobility
With Assistance
I&O [Intake/ Output] As Directed
Frequency: q12h
Pneumatic Compression Sleeves As Directed
Type: Knee high
Teds [Anti-embolism (FIONA) Hose] As Directed
Type: Thigh high
Vital Signs As Directed
Frequency: Per unit guidelines
Weight As Directed
Frequency: Daily
Ot Eval And Treat Routine
Pt Eval And Treat Routine
Activity Level: Out of Bed-Early Mobility
DX Deep Vein Thrombosis Video Routine
01/07/24 22:30
Atorvastatin [Lipitor] 10 mg PO HS
01/08/24 07:45
Basic Metabolic Panel IN AM
Complete Blood Count/No Diff IN AM
Folate IN AM
Hgba1c [Glycohemoglobin (HgbA1c)] IN AM
Magnesium IN AM
Vitamin B12 IN AM
01/08/24 08:00
Escitalopram Oxalate [Lexapro] 5 mg PO DAILY
01/10/24 11:00
DC Protocol for Telemetry ONCE
Abnormal Lab Results
01/07/24
17:12
MCH 31.5 H pg
(27.0-31.0)
MPV 11.4 H fL
(7.4-10.4)
BUN 28 H mg/dl
(7-17)
Glucose 132 H mg/dl
(70-99)
01/07/24 17:12
01/07/24 17:12
Vital Signs
Initial and Last Documented VS:
Initial Vital Signs
Pulse Resp BP Pulse Ox
70 10 160/137 98
01/07/24 16:20 01/07/24 16:20 01/07/24 16:20 01/07/24 16:20
Last Documented Vital Signs
Temp Pulse Resp BP Pulse Ox
98.2 F 90 20 146/90 94
01/09/24 16:00 01/09/24 16:36 01/09/24 16:00 01/09/24 16:36 01/09/24 16:00
<Trang Marks MD, Resident - Last Filed: 01/09/24 17:00>
Orders/Labs/Results
Orders:
Orders
01/07/24 Breakfast
Regular
At Your Request: Full Participation
Does patient need a safe tray?: No
01/07/24 16:49
Straight cath- Treatment ONCE
HydrALAZINE [Apresoline] 10 mg IV NOW STA
01/07/24 16:54
0.9% Sodium Chloride 500 ml [Nss] 500 ml IV BOLUS
01/07/24 17:12
Basic Metabolic Panel Urgent
Complete Blood Count/With Diff Urgent
TSH Reflex To Free T4 Urgent
01/07/24 17:53
Urinalysis Reflex To Culture Urgent
Date Specimen was Collected: 01/07/24
Time Specimen was Collected: 17:51
01/07/24 19:57
Admit/Transfer Patient As Directed
Co-Sign Provider:
Level of Care: Observation services
Assign to:: Telemetry
Physician / Group: Juan Antonio
Diagnosis: Ambulatory Dysfunction
Reason for Telemetry: Arrhythmia
Date to Stop Telemetry: 01/10/24
Time to Stop Telemetry: 11:00
01/07/24 19:58
PRN Pain Medication Management As Directed
May give lesser potent ordered pain med per pt: Yes
preference::
Protocol:: Medication orders for pain may be administered in a
manner that supports deferring to patient preference
when the pt is:
- Requesting an ordered lesser potent pain medication.
Least to most potent pain medications are defined
as: acetaminophen < NSAID < tramadol < opioids
(morphine, oxycodone, hydromorphone).
- Requesting a lesser dose of the same medication IF
ORDERED.
- Requesting a less intrusive route of administration
if both routes are prescribed by the provider (PO <
IV).
01/07/24 20:00
Code Status As Directed
Resuscitation Status: Full Code
01/07/24 20:57
UROLOGY CONSULT Routine
Consulting Provider: Karl Eubanks
Was physician already notified: Yes
01/07/24 22:16
Acetaminophen [Tylenol] 650 mg PO Q4HPRN PRN
Apixaban [Eliquis] 5 mg PO BID
Diltiazem Sustained Release [Cardizem Sr] 120 mg PO BID
HydrALAZINE [Apresoline] 10 mg PO TID
01/07/24 22:16
Activity As Directed
Activity Level: Out of Bed-Early Mobility
With Assistance
I&O [Intake/ Output] As Directed
Frequency: q12h
Pneumatic Compression Sleeves As Directed
Type: Knee high
Teds [Anti-embolism (FIONA) Hose] As Directed
Type: Thigh high
Vital Signs As Directed
Frequency: Per unit guidelines
Weight As Directed
Frequency: Daily
Ot Eval And Treat Routine
Pt Eval And Treat Routine
Activity Level: Out of Bed-Early Mobility
DX Deep Vein Thrombosis Video Routine
01/07/24 22:30
Atorvastatin [Lipitor] 10 mg PO HS
01/08/24 07:45
Basic Metabolic Panel IN AM
Complete Blood Count/No Diff IN AM
Folate IN AM
Hgba1c [Glycohemoglobin (HgbA1c)] IN AM
Magnesium IN AM
Vitamin B12 IN AM
01/08/24 08:00
Escitalopram Oxalate [Lexapro] 5 mg PO DAILY
01/10/24 11:00
DC Protocol for Telemetry ONCE
Abnormal Lab Results
01/07/24
17:12
MCH 31.5 H pg
(27.0-31.0)
MPV 11.4 H fL
(7.4-10.4)
BUN 28 H mg/dl
(7-17)
Glucose 132 H mg/dl
(70-99)
01/07/24 17:12
01/07/24 17:12
Vital Signs
Initial and Last Documented VS:
Initial Vital Signs
Pulse Resp BP Pulse Ox
70 10 160/137 98
01/07/24 16:20 01/07/24 16:20 01/07/24 16:20 01/07/24 16:20
Last Documented Vital Signs
Temp Pulse Resp BP Pulse Ox
98.2 F 90 20 146/90 94
01/09/24 16:00 01/09/24 16:36 01/09/24 16:00 01/09/24 16:36 01/09/24 16:00
<Trang Marks MD, Resident - Last Filed: 01/09/24 17:00>
*Critical Care Note
Total Time (30-74mins, 75-104mins- exclusive of procedures): Not Applicable
<Trang Marks MD, Resident - Last Filed: 01/09/24 17:00>
Comment
Comment:
Musculoskeletal injury, infection, electrolyte imbalance?
ED Attending Note
<Jax Rojas DO - Last Filed: 01/07/24 16:58>
ED Attending Note
Patient seen and examined by attending physician: Yes
I performed the substantive portion of visit, reviewed & personally made and approve the management plan that is documented in note by myself or AVINASH.: Yes
I performed a history and physical exam of patient and discussed management with resident, I reviewed resident's note and agree with documented findings and plan of care.: Yes
ED Attending Note:
I evaluated patient at bedside. I also reviewed discharge summary from August 2023. At that time she was admitted with orthostatic hypotension as well as UTI. She has a history of paroxysmal A-fib. She had an MRI at that time which did not show
any acute changes. She also had high blood pressure and was placed on hydralazine in addition to diltiazem last admission. The patient states that her dizziness is not acute but is a recurring chronic issue. It did somewhat worsen more recently
and she did not felt well enough to stay out of bed today. She is primarily in bed and then lowered herself to the ground around 2 PM and ultimately came in by ambulance. There was no injury. She is hypertensive but did not take her
antihypertensives today.
<Trang Marks MD, Resident - Last Filed: 01/09/24 17:00>
-
Portions of this chart may have been created with voice recognition software.� Occasional wrong word or��sound alike� substitutions may have occurred due to the inherent limitations of voice recognition software.
Discharge Plan
Departure
Patient Disposition: Admit
Date of Disposition: 01/07/24
Time of Disposition: 19:29
Presentation/result/management discussed w/ accepting MD/DO: Hospitalist
Patient with high blood pressure during this ER visit?: Yes
Discharge Problem:
Ambulatory dysfunction
Interventions
Interventions:
*Risk Screen - Suicide Last Done: 01/07/24 22:57
*General Assessment Last Done: 01/07/24 16:30
*Neglect/Abuse Screening Last Done: 01/07/24 16:30
ED- Fall Risk Assessment Last Done: 01/07/24 16:31
*ED COVID-19 Vaccine History Last Done: 01/07/24 16:30
*Nursing Disposition Last Done: 01/07/24 22:24
ED- Cardiac Assessment Last Done: 01/07/24 22:08
ED- Neurological Assessment Last Done: 01/07/24 16:31
ED- Pulmonary Assessment Last Done: 01/07/24 16:31
Discharge Date and Time
Discharge Date/Time: 01/07/24 22:24
[2024-01-07] MEDS: APRESOLINE 10 MG IV (16:57)
[2024-01-07] MEDS: NSS 500 IV (16:57)
[2024-01-07 17:25] LABS: % Basophils 0.6 % (0-2); % Immature Granulocytes 0.3 % (0-0.5); % Lymphocytes 39.9 % (20.5-51.1); % Monocytes 7.8 % (1.7-9.3); % Neutrophils 49.4 % (42.2-75.2); Absolute Eosinophils 0.1 10^3/uL (0-0.7); Absolute Lymphocytes 2.8 10^3/uL (1.2-3.4); Absolute Monocytes 0.6 10^3/uL (0.1-0.6); Absolute Neutrophils 3.5 10^3/uL (1.4-6.5); Hematocrit 44.3 % (37.0-47.0); Hemoglobin 14.9 g/dL (12.0-16.0); Mean Corp Hgb Conc. 33.6 g/dL (33.0-37.0); Mean Corpuscular Hgb 31.5 pg (27.0-31.0); Mean Corpuscular Volume 93.7 fL (81.0-99.0); Mean Platelet Volume 11.4 fL (7.4-10.4); Nucleated Red Blood Cells % 0 %; Platelet Count 221 10^3/uL (130-400); Red Blood Cell Count 4.73 10^6/uL (4.20-5.40); Red Cell Dist. Width 13.2 % (11.5-14.5)
[2024-01-07 17:31] LABS: Blood Urea Nitrogen 28 mg/dl (7-17); Calcium 9.8 mg/dl (8.4-10.2); Carbon Dioxide 28 mmol/L (22-30); Chloride 103 mmol/L (98-107); Estimated Creatinine Clearance 49 ml/min; Glucose 132 mg/dl (70-99); Potassium 4.4 mmol/L (3.5-5.1); Sodium 137 mmol/L (135-145); eGFR > 60.00
[2024-01-07 18:02] LABS: TSH Reflex To Free T4 1.25 uIU/ml (0.47-4.68)
[2024-01-07 18:10] LABS: Urine Albumin Negative (Neg - Trace); Urine Bilirubin Negative (Negative); Urine Character Clear (Clear); Urine Color Yellow; Urine Glucose Negative (Negative); Urine Ketone Negative (Negative); Urine Leukocyte Negative (Negative); Urine Nitrite Negative (Negative); Urine Occult Blood Negative (Negative); Urine Urobilinogen Negative (Neg - 1+)
--- NOTE | 2024-01-07 19:33 | HPS.HSE ---
Family Physician
-
Family Physician: Ned Rea
Chief Complaint
-
Ambulatory Dysfunction
History of Present Illness
Pt is 88 yo F with PMH HTN, interstitial lung disease, paroxysmal atrial fibrillation, and peripheral neuropathy c/o weakness x several months. She describes feeling shaky and unsteady in legs and feet leading to fall today. Pt states she was in bed
all day due to weakness and decided to get out of bed at 2PM. She noticed a shaji underneath the door to her apartment and fell while bending forward to pick it up. Pt admits to using a rollator walker for support while walking. Pt denies PO intake
today including food, fluid, and medications. She also c/o urinary retention. Pt states she feels the urge to void but experiences trickles when she goes to the bathroom. She did require a catheter several months ago due to urinary retention. Pt
denies fever, N/V/D, urinary frequency, and vertigo.
Medical History
Past Medical History
Past Medical History: Reports Other
Additional Past Medical History:
Paroxysmal Atrial Fibrillation
Hypertension
GERD / Hiatal Hernia
Ambulatory Dysfunction
DJD
Interstitial Lung Disease
Past Surgical History: Reports Other
Additional Past Surgical History:
Bilateral TKA
Bilateral REBA
Right TSA
Appendectomy
Hysterectomy
Cataracts
Hernia Repair
Social History
Tobacco: Non-smoker
Alcohol: None
Drug: None
Family History
Family History: Other (Father: CAD; Mother: COPD; Sister: COPD, CAD)
Allergies / Home Medications
Allergies reflects when Allergies were last updated in [employer].
Home Medications with original date entered in [employer]
Allergy/Medication List:
Allergies
Allergy/AdvReac Type Severity Reaction Status Date / Time
No Known Allergies Allergy Verified 08/23/23 20:01
Home Medications
omeprazole 20 mg capsule,delayed release 20 mg PO DAILY Gastrointestinal issue 03/09/10
ascorbic acid (vitamin C) 500 mg tablet (Vitamin C) 1,000 mg PO DAILY Supplement ##0 03/22/16
calcium carbonate 500 mg-vitamin D3 3.125 mcg (125 unit) tablet 1 tab PO DAILY Supplement ##0 03/22/16
escitalopram oxalate 5 mg tablet 5 mg PO DAILY Mental Health 10/19/18
simvastatin 10 mg tablet 10 mg PO HS High cholesterol 10/19/18
diltiazem HCl 120 mg capsule,extended release 12 hr 120 mg PO BID Heart Failure 08/25/23
vit C 250 mg-vit E 90 mg-zinc 40 mg-copper 1 xc-[id number] capsule (PreserVision AREDS-2) 1 tab PO DAILY Supplement ##0 08/25/23
apixaban 5 mg tablet (Eliquis) 5 mg PO BID Blood clot prevention/tx #30 tabs 08/26/23
hydralazine 10 mg tablet 10 mg PO TID Blood pressure #0 tabs 08/26/23
meclizine 25 mg tablet 25 mg PO Q8HPRN PRN Dizziness #0 tabs 08/26/23
Review of Systems
-
A 12 point ROS was completed and negative except as noted: Yes
Constitutional: Denies Fever or Chills
Respiratory: Denies Cough or Trouble Breathing
Cardiac: Reports Palpitations; Denies Chest Pain
: Reports Difficulty Voiding; Denies Dysuria
Neurological: Reports Numbness (Bilateral Feet, Chronic)
Physical Exam
Vital Signs
Vital Signs
Temp Pulse Resp BP Pulse Ox
98.2 F 73 17 164/60 97
01/07/24 16:24 01/07/24 17:30 01/07/24 17:30 01/07/24 18:17 01/07/24 18:30
Physical Exam
General: Comfortable and Conversant
HEENT: Anicteric and Moist mucous membranes
Respiratory: Non Labored Respirations and Other (Fine rales bilateral lower regions)
Cardiac: S1/S2 and Regular Rhythm; No Murmur
GI: Soft and Non Tender
Rectal: Deferred by Provider
Musculoskeletal: No Clubbing, No Cyanosis and No Edema
Skin: Warm and Dry
Neuro: Awake, Alert, Oriented and Nonfocal/grossly intact
Laboratory Results
-
01/07/24 17:12
01/07/24 17:12
Data Reviewed
-
Lab Data: Labs Reviewed by me
Old Records: Reviewed
Impression/Plan
-
Ambulatory Dysfunction, likely secondary to Orthostatic Hypotension
-Check orthostatic vitals
-Add Thigh High TEDs
-Check vitamin b12 and folate
Urinary Retention
-No evidence of UTI on urinalysis
-Patient reports she required Womack during last hospitalization
-Place Womack catheter
Peripheral Neuropathy
-Check HgbA1c, Vitamin B12 and Folic Acid
Paroxysmal Atrial Fibrillation
-Continue Eliquis
-Continue Cardizem
Essential Hypertension, BP uncontrolled -Patient reports missing her
-Difficult situation with concern for orthostasis
-Continue Diltazem and Hydralazine with hold parameters
Interstitial Lung Disease
-Stable
GERD / Hiatal Hernia
-Continue Omeprazole
Depression
-Continue Lexapro
DVT proph: Eliquis
Code Status: Full Code
--- NOTE | 2024-01-07 20:08 | W.PN.UPDATE ---
Update Note
Progress Note Update
This is an addendum to the H&P written by Kirsty Smyth on 01/07/2024. Patient seen and examined independently with PA
88-year-old female past medical history of paroxysmal atrial fibrillation/SVT, interstitial lung disease, CAD, prediabetes, hypertension, hyperlipidemia, depression, GERD presenting with ongoing unsteadiness with ambulation. Patient got up and fell
lately to the ground without injury. She did not take her blood pressure medications this morning. She states her blood pressure is up a few days ago was 160s. Systolic blood pressure greater than 200. IV hydralazine given. IV fluids were given
in ER.
Patient was recently admitted for similar symptoms in July during which time hydralazine was started.
Difficult situation since patient's blood pressure elevated but having worsening orthostatic symptoms. No neurological symptoms or deficits on examination. Check orthostatic vital signs. Stop further fluids. Continue hydralazine 10 mg 3 times
daily and diltiazem 120 mg BID. Continue compression stockings, abdominal binder. Can increase hydralazine if BP persistently above 200. Patient having bilateral lower extremity neuropathy. Check TSH, B12, A1c and folate.
She is also having urinary retention of 340 cc on bladder scan. Urinalysis negative for UTI. Womack catheter to be placed.
--- NOTE | 2024-01-07 21:56 | W.PN.URO.CBU ---
Today's Communication / Plan
-
LEAVE WATSON
Assessment / Plan
-
s]urnary retention of unm]kinwn etiology Er staff with diffivcuty dg lerma Placed in frog lg posoiton and 16 fr foly assed blindly into bladder 400cc clar yellow draINED LA[EAVE WATSON
Diagnosis
-
Date of Service: January 07, 2024
-
Patient Diagnosis:
urinary retention difficult watson atropjhic vaginitis
Post Op Day:
Subjective
-
slow void
Objective
-
Vital Signs
Temp Pulse Resp BP Pulse Ox
98.2 F 81 18 160/64 94
01/07/24 16:24 01/07/24 21:00 01/07/24 21:00 01/07/24 21:00 01/07/24 21:00
Laboratory Results
01/07/24 17:12
01/07/24 17:12
Review of Systems
-
: Difficulty Voiding
Physical Exam
-
General - well developed, well nourished, no acute distress
Chest - clear bilaterally
Abdomen - soft, non-tender, positive bowel sounds, no CVAT, no incisional pain or distention
Genitalia - atrophic vaginitis
Rectal - normal
Skin - warm & dry with no rash
Neuro - AOx3, no motor deficits
Extremities - no clubbing, no cyanosis, no edema
Incision - clean, dry
Dressing - clean, dry, intact
Care Review
Data Reviewed
Discussed with: Hospitalist and Nursing
[2024-01-07] MEDS: CARDIZEM SR 120 MG PO (22:38)
[2024-01-07] MEDS: LIPITOR 10 MG PO (22:38)
[2024-01-07] MEDS: ELIQUIS 5 MG PO (22:38)
[2024-01-07] MEDS: APRESOLINE 10 MG PO (22:38)
[2024-01-07] MEDS: TYLENOL 650 MG PO (22:42)
[2024-01-08] VITALS (11 sets, daily range): BP systolic 102–193; BP diastolic 57–90; PULSE 75–92; O2SAT 94; BMI 27.0
--- NOTE | 2024-01-08 01:22 | PTCARENOTE ---
Upon arrival to at approx 22:30, pt's BP= 204/89. I gave the pt her scheduled PO hydralazine (10mg) and PO cardizem (120mg). Rechecked BP at 23:23 and it was 176/83. I tigertexted the house provider who instructed me to recheck a manual 1-2 hrs
later. At 01:16, manual BP= 178/70. Pt did report a headache during this time. Spoke with house provider on phone and provider to order 5mg IV hydralazine. Will continue to monitor.
[2024-01-08] MEDS: APRESOLINE 5 MG IV (01:36)
[2024-01-08 08:07] LABS: Hemoglobin 13.4 g/dL (12.0-16.0); Mean Corp Hgb Conc. 33.5 g/dL (33.0-37.0); Mean Corpuscular Hgb 32.1 pg (27.0-31.0); Mean Corpuscular Volume 95.9 fL (81.0-99.0); Mean Platelet Volume 10.9 fL (7.4-10.4); Platelet Count 198 10^3/uL (130-400); Red Blood Cell Count 4.17 10^6/uL (4.20-5.40); Red Cell Dist. Width 13.4 % (11.5-14.5); White Blood Cell Count 8.5 10^3/uL (4.8-10.8)
[2024-01-08] MEDS: LEXAPRO 5 MG PO (08:07)
[2024-01-08] MEDS: CARDIZEM SR 120 MG PO ×2 (08:07→21:10)
[2024-01-08] MEDS: APRESOLINE 10 MG PO (08:07)
[2024-01-08] MEDS: ELIQUIS 5 MG PO ×2 (08:07→21:10)
[2024-01-08 08:31] LABS: Blood Urea Nitrogen 20 mg/dl (7-17); Calcium 9.5 mg/dl (8.4-10.2); Carbon Dioxide 27 mmol/L (22-30); Chloride 106 mmol/L (98-107); Estimated Creatinine Clearance 50 ml/min; Glucose 122 mg/dl (70-99); Magnesium 1.9 mg/dl (1.6-2.3); Sodium 138 mmol/L (135-145); eGFR > 60.00
[2024-01-08 10:19] LABS: Glycohemoglobin (HgbA1c) 5.9 % (4.0-5.6)
--- NOTE | 2024-01-08 10:43 | CM ---
Patient seen bedside, initial assessment completed. Patient resides in [facility], 5th floor, elevator access. Patient uses a rollator in the home, has a walker as well. Patient has a history of [facility], [facility]. Patient PCP Dr. Walter,
pharmacy [facility], confirms prescription coverage. Patient reports her son, Josh, assists with food shopping and cleaning, daughter in law, Zaina, assists with laundry. LAWRENCE reviewed, signed, placed in chart. Patient provided with copy. CM will
continue to follow for all discharge planning needs.
Plan; watch for PT/OT recommendations for needs upon discharge.
[2024-01-08 11:55] LABS: Folate > 20.0 ng/ml (2.76-20); Vitamin B12 406 pg/ml (239-931)
--- NOTE | 2024-01-08 12:25 | W.PN.HOSP.TC ---
Today's Communication/Plan
-
DC hydralazine
Start midodrine
Avoid supine blood pressure measurements
Compression stockings and leg elevation
Repeat orthostatic vitals in the morning
Assessment / Plan
Assessment / Plan
#Orthostatic hypotension
#Supine hypertension
-Orthostatic vital signs were significantly positive today, associated with symptoms at time
-Home medications currently include hydralazine; also on diltiazem no for rate control, minimal BP effect
-No underlying obvious second disorders such as Parkinson's disease or hypoadrenal state
-Suspect she has a degree of supine hypertension, causing overtreatment of BP with orthostasis
Plan
-Stop hydralazine, nursing order to avoid supine BP measurements
-Start midodrine at 2.5 mg 3 times daily
-Repeat orthostatic vital signs in the morning
-Compression stockings and leg elevation
#Urinary Retention
-No evidence of UTI on urinalysis
-Patient reports she required Womack during last hospitalization
-Maintain Womack, plan for TOV before DC
#Peripheral Neuropathy
-Chronic, no metabolic etiology is known
#Paroxysmal Atrial Fibrillation
-Home medications include diltiazem and Eliquis
-Do not anticipate that Cardizem is contributing much to orthostasis
-Heart rate has remained WNL and in NSR thus far
#Interstitial Lung Disease
-Unclear etiology, no known associated CTD or occupational exposures
-Patient does not know her diagnosis, not currently on steroid or antifibrotic therapy
-Does not require any standing respiratory inhalers or medications at baseline
-Stable
#GERD / Hiatal Hernia
-No known history of PE or erosive disease
-Home medications include omeprazole
#Depression
-Continue Lexapro
DVT proph: Eliquis
Code Status: Full Code
Diet: House
Anticipated Discharge: 24 - 48 hours
Subjective/Interval History
-
Date of Service: January 08, 2024
Seen and examined at the bedside. No acute events, did just have orthostatic vital signs taken with physical therapy that were positive and associated with symptoms. Upon speaking with her, she says that she is on blood pressure medications as her
home blood pressure used to be consistently around 160 systolic. Mentions orthostatic symptoms over time. Was hospitalized here earlier this year for the same issue.
Denies any chest pain or shortness of breath, palpitations, nausea, vomiting, diarrhea, abnormal bleeding or bruising, paresthesias, weakness
Objective Data
-
Labs:
Laboratory Results
01/08/24
07:45
WBC 8.5
Hgb 13.4
Hct 40.0
Plt Count 198
Sodium 138
Potassium 4.0
Chloride 106
Carbon Dioxide 27
BUN 20 H
Creatinine 0.7
Glucose 122 H
Calcium 9.5
Vital Signs:
Vital Signs
Temp Pulse Resp BP Pulse Ox
98.2 F 76 16 183/84 90
01/08/24 11:12 01/08/24 11:12 01/08/24 11:12 01/08/24 11:12 01/08/24 11:12
I&O
01/07/24 01/08/24 01/09/24
06:59 06:59 06:59
Output Total 1100 / 1100
Balance -1100 / -1100
Review of Systems
-
History Source: Patient
All other systems: Reviewed and negative
Physical Exam
-
General: Well Nourished, No Apparent Distress and Comfortable
HEENT: Normocephalic, Atraumatic and Moist Mucous Membranes
Respiratory: Clear to Auscultation, Crackles (Bilateral bases, dry) and Non Labored Respirations; Negative Wheezes or Rhonchi
Cardiac: Regular Rhythm and S1/S2; Negative Murmur, Rub or Gallop
GI: Soft, Nontender, Nondistended and Normal Bowel Sounds
Musculoskeletal: No Clubbing, No Cyanosis and No Edema
Skin: Warm and Dry; Negative Rash or Jaundice
Neuro: AO x 3, Nonfocal/Grossly Intact and Central Nerve's Intact
Data Reviewed
-
Labs: Labs Reviewed by me
[2024-01-08] MEDS: TYLENOL 650 MG PO (13:39)
[2024-01-08] MEDS: ProAmatine PO ×2 (13:46→17:39)
[2024-01-08] MEDS: LIPITOR 10 MG PO (21:10)
[2024-01-09] VITALS (8 sets, daily range): BP systolic 110–179; BP diastolic 67–97; PULSE 90; BMI 27.0
[2024-01-09] MEDS: NSS (PRESERVATIVE FREE) 10 ML IV (03:38)
[2024-01-09] MEDS: PROTONIX IV 40 MG IV (03:38)
[2024-01-09 08:17] LABS: % Basophils 0.3 % (0-2); % Eosinophils 1.9 % (0-6); % Immature Granulocytes 0.4 % (0-0.5); % Lymphocytes 30.9 % (20.5-51.1); % Monocytes 9.1 % (1.7-9.3); % Neutrophils 57.4 % (42.2-75.2); Absolute Eosinophils 0.2 10^3/uL (0-0.7); Absolute Lymphocytes 2.5 10^3/uL (1.2-3.4); Absolute Monocytes 0.7 10^3/uL (0.1-0.6); Absolute Neutrophils 4.6 10^3/uL (1.4-6.5); Hemoglobin 13.1 g/dL (12.0-16.0); Mean Corp Hgb Conc. 33.6 g/dL (33.0-37.0); Mean Corpuscular Hgb 31.3 pg (27.0-31.0); Mean Corpuscular Volume 93.3 fL (81.0-99.0); Mean Platelet Volume 10.7 fL (7.4-10.4); Nucleated Red Blood Cells % 0 %; Platelet Count 201 10^3/uL (130-400); Red Blood Cell Count 4.18 10^6/uL (4.20-5.40); Red Cell Dist. Width 13.4 % (11.5-14.5); White Blood Cell Count 7.9 10^3/uL (4.8-10.8)
[2024-01-09] MEDS: ProAmatine 2.5 MG PO (09:07)
[2024-01-09] MEDS: ELIQUIS 5 MG PO ×2 (09:07→20:38)
[2024-01-09] MEDS: CARDIZEM SR 120 MG PO ×2 (09:07→20:38)
[2024-01-09] MEDS: LEXAPRO 5 MG PO (09:08)
[2024-01-09] MEDS: PROTONIX 40 MG PO (09:08)
[2024-01-09 09:10] LABS: Blood Urea Nitrogen 20 mg/dl (7-17); Calcium 9.2 mg/dl (8.4-10.2); Carbon Dioxide 26 mmol/L (22-30); Chloride 105 mmol/L (98-107); Estimated Creatinine Clearance 44 ml/min; Glucose 123 mg/dl (70-99); Potassium 4.2 mmol/L (3.5-5.1); Sodium 137 mmol/L (135-145); eGFR > 60.00
--- NOTE | 2024-01-09 10:26 | W.PN.URO.CBU ---
Today's Communication / Plan
-
may remove folety pe pt requsatat any perez e but must nbe roved before 1030 am
Assessment / Plan
-
s]urnary retention of unknown etiology Er staff with difficulty passing watson Placed in frog leg posiiiton and 16 fr watson passed blindly into bladder 400cc clear yellow draINED LA[EAVE WATSON may rempove for voiding tria any tome as pt
improves
Diagnosis
-
Date of Service: January 09, 2024
-
Patient Diagnosis:
Post Op Day:
Patient Diagnosis:
urinary retention difficult watson atropjhic vaginitis
Post Op Day:
Subjective
-
tolesting watson feels overall better
Objective
-
Vital Signs
Temp Pulse Resp BP Pulse Ox
98.1 F 116 20 110/67 94
01/09/24 08:05 01/09/24 09:07 01/09/24 08:05 01/09/24 09:07 01/09/24 08:05
Intake and Output
01/08/24 01/09/24 01/10/24
06:59 06:59 06:59
Output Total 1100 / 1100 1300 / 1300
Balance -1100 / -1100 -1300 / -1300
Output:
Urine, Watson 1100 / 1100 1300 / 1300
Laboratory Results
01/09/24 07:38
01/09/24 07:38
Review of Systems
-
: No Symptoms
Physical Exam
-
General - well developed, well nourished, no acute distress
Chest - clear bilaterally
Abdomen - soft, non-tender, positive bowel sounds, no CVAT, no incisional pain or distention
Genitalia - normal
Rectal - normal
Skin - warm & dry with no rash
Neuro - AOx3, no motor deficits
Extremities - no clubbing, no cyanosis, no edema
Incision - clean, dry
Dressing - clean, dry, intact
Care Review
Data Reviewed
Discussed with: Family
--- NOTE | 2024-01-09 10:45 | W.PN.HOSP.TC ---
Today's Communication/Plan
-
Monitor blood pressures and seated/standing position only
Systolic blood pressure goal is 160 to 170 mmHg
Midodrine as needed for SBP <140
Hydralazine as needed for SBP >190
Assessment / Plan
Assessment / Plan
#Orthostatic hypotension
#Supine hypertension
-Orthostatic vital signs were significantly positive today, associated with symptoms at time
-Home medications currently include hydralazine; also on diltiazem no for rate control, minimal BP effect
-No underlying obvious second disorders such as Parkinson's disease or hypoadrenal state
-Suspect she has a degree of supine hypertension, causing overtreatment of BP with orthostasis
-Would like to optimize her as much as possible before leaving, fall risk with full dose AC
Plan
-Start midodrine 2.5 mg 3 times daily PRN for SBP <140
-Change hydralazine to 10 mg PRN for SBP >190
-Systolic blood pressure goal ideally around 160 to 170 mmHg
-Repeat orthostatic vital signs in the morning
-Compression stockings and leg elevation
#Urinary Retention
-No evidence of UTI on urinalysis
-Patient reports she required Womack during last hospitalization
-Maintain Womack, plan for TOV before DC
#Peripheral Neuropathy
-Chronic, no metabolic etiology is known
#Paroxysmal Atrial Fibrillation
-Home medications include diltiazem and Eliquis
-Do not anticipate that Cardizem is contributing much to orthostasis
-Heart rate has remained WNL and in NSR thus far
#Interstitial Lung Disease
-Unclear etiology, no known associated CTD or occupational exposures
-Patient does not know her diagnosis, not currently on steroid or antifibrotic therapy
-Does not require any standing respiratory inhalers or medications at baseline
-Stable
#GERD / Hiatal Hernia
-No known history of PE or erosive disease
-Home medications include omeprazole
#Depression
-Continue Lexapro
DVT proph: Eliquis
Code Status: Full Code
Diet: House
Anticipated Discharge: 24 - 48 hours
Subjective/Interval History
-
Date of Service: January 09, 2024
Seen and examined at bedside. No acute events. She did have her orthostatic vital signs taken this morning, her blood pressure does qualify for orthostasis though her symptoms are improved. States she felt less lightheaded this morning that she
did on previous days with positional changes.
She otherwise denies any acute complaints, has chronic shortness of breath is unchanged. Denies chest pain, fevers or chills, nausea, vomiting, diarrhea, paresthesias, abnormal bleeding or bruising
Objective Data
-
Labs:
Laboratory Results
01/09/24
07:38
WBC 7.9
Hgb 13.1
Hct 39.0
Plt Count 201
Sodium 137
Potassium 4.2
Chloride 105
Carbon Dioxide 26
BUN 20 H
Creatinine 0.8
Glucose 123 H
Calcium 9.2
Vital Signs:
Vital Signs
Temp Pulse Resp BP Pulse Ox
98.1 F 116 20 110/67 94
01/09/24 08:05 01/09/24 09:07 01/09/24 08:05 01/09/24 09:07 01/09/24 08:05
I&O
01/08/24 01/09/24 01/10/24
06:59 06:59 06:59
Output Total 1100 / 1100 1300 / 1300
Balance -1100 / -1100 -1300 / -1300
Review of Systems
-
All other systems: Reviewed and negative
Constitutional: Reports No Symptoms
Physical Exam
-
General: Well Nourished, No Apparent Distress, Comfortable and Conversant
HEENT: Normocephalic, Atraumatic, Moist Mucous Membranes and Anicteric
Respiratory: Crackles (Dry, bilateral bases) and Non Labored Respirations; Negative Wheezes, Rhonchi or Accessory Resp Muscle Use
Cardiac: Regular Rhythm, S1/S2 and Murmur; Negative Rub, JVD or Gallop
GI: Soft, Nontender, Nondistended and Normal Bowel Sounds
Musculoskeletal: No Clubbing, No Cyanosis and No Edema
Skin: Warm and Dry; Negative Rash
Neuro: AO x 3, Nonfocal/Grossly Intact and Central Nerve's Intact; Negative Tremors
Data Reviewed
-
Labs: Labs Reviewed by me
--- NOTE | 2024-01-09 11:11 | CM ---
Patient seen bedside, discussed PT recommendation of home health. Patient unsure which VN agency she had in past, patient is agreeable to referral. Per patient chart and previous CM notes, patient history with [facility]. TT to [facility] liaison for referral.
CM will continue to follow for all discharge planning needs.
Plan; home with [facility] pending acceptance.
--- NOTE | 2024-01-09 12:23 | VNURNOTE ---
Home Health Liaison met with patient at bedside to discuss [facility] nurse/therapy, visits, schedule and homebound status. Patient is agreeable and understands that visits at home will be 1-3 x per week to assess and teach medical management. [facility]
brochure provided with contact information. Patient is aware that [facility] will contact them for start of care within a few days after discharge from . Patient has a BP cuff at home and rolling walker. [facility] referral completed in [facility].
[2024-01-09] MEDS: LIPITOR 10 MG PO (20:38)
[2024-01-10] MEDS: TYLENOL 650 MG PO ×2 (00:26→07:37)
[2024-01-10 03:28] VITALS: BP 131/61
[2024-01-10 05:51] VITALS: BMI 27.2
[2024-01-10 07:35] VITALS: BP 123/66; BP 151/82; PULSE 80; PULSE 90
[2024-01-10 07:36] VITALS: BP 151/82
[2024-01-10] MEDS: ELIQUIS 5 MG PO (07:37)
[2024-01-10] MEDS: PROTONIX 40 MG PO (07:37)
[2024-01-10] MEDS: LEXAPRO 5 MG PO (07:37)
[2024-01-10] MEDS: CARDIZEM SR 120 MG PO (07:40)
[2024-01-10] MEDS: ProAmatine 2.5 MG PO (07:47)
[2024-01-10 08:16] LABS: % Basophils 0.4 % (0-2); % Eosinophils 2.3 % (0-6); % Immature Granulocytes 0.3 % (0-0.5); % Lymphocytes 24.6 % (20.5-51.1); % Monocytes 8.9 % (1.7-9.3); % Neutrophils 63.5 % (42.2-75.2); Absolute Eosinophils 0.2 10^3/uL (0-0.7); Absolute Lymphocytes 2.5 10^3/uL (1.2-3.4); Absolute Monocytes 0.9 10^3/uL (0.1-0.6); Absolute Neutrophils 6.4 10^3/uL (1.4-6.5); Hematocrit 44.5 % (37.0-47.0); Hemoglobin 14.8 g/dL (12.0-16.0); Mean Corp Hgb Conc. 33.3 g/dL (33.0-37.0); Mean Corpuscular Hgb 31.4 pg (27.0-31.0); Mean Corpuscular Volume 94.5 fL (81.0-99.0); Mean Platelet Volume 10.8 fL (7.4-10.4); Nucleated Red Blood Cells % 0 %; Platelet Count 236 10^3/uL (130-400); Red Blood Cell Count 4.71 10^6/uL (4.20-5.40); Red Cell Dist. Width 13.4 % (11.5-14.5); White Blood Cell Count 10.1 10^3/uL (4.8-10.8)
[2024-01-10 08:52] LABS: Blood Urea Nitrogen 23 mg/dl (7-17); Carbon Dioxide 25 mmol/L (22-30); Chloride 101 mmol/L (98-107); Estimated Creatinine Clearance 44 ml/min; Glucose 146 mg/dl (70-99); Potassium 4.3 mmol/L (3.5-5.1); Sodium 136 mmol/L (135-145); eGFR > 60.00
[2024-01-10 11:05] VITALS: BP 172/70
--- NOTE | 2024-01-10 11:42 | W.PN.HOSP.TC ---
Today's Communication/Plan
-
Trial of void
Discharge if able to urinate without catheter
Assessment / Plan
Assessment / Plan
#Orthostatic hypotension
#Supine hypertension
-Home medications currently include hydralazine; also on diltiazem no for rate control, minimal BP effect
-No underlying obvious second disorders such as Parkinson's disease or hypoadrenal state
-Suspect she has a degree of supine hypertension, causing overtreatment of BP with orthostasis
-Asymptomatic on orthostats this morning with current medication regimen in place
-DC with midodrine 2.5 as needed for SBP <140, hydralazine 10 as needed for SBP >190
-Patient to continue monitoring home blood pressures, SBP goal 160 to 170 mmHg
-Continue with supportive measures, fall precautions
#Urinary Retention
-Patient reports she required Womack during last hospitalization
-Currently on trial of void, states she urinated some earlier
-Not a candidate for tamsulosin due to orthostasis
#Peripheral Neuropathy
-Chronic, no metabolic etiology is known
#Paroxysmal Atrial Fibrillation
-Home medications include diltiazem and Eliquis; unlikely that Cardizem is contributing much to orthostasis
-Heart rate has remained WNL and in NSR thus far
#Interstitial Lung Disease
-Unclear etiology, no known associated CTD or occupational exposures
-Patient does not know her diagnosis, not currently on steroid or antifibrotic therapy
-Does not require any standing respiratory inhalers or medications at baseline
#GERD / Hiatal Hernia
-No known history of PE or erosive disease
-Home medications include omeprazole
#Depression
-Continue Lexapro
DVT proph: Eliquis
Code Status: Full Code
Diet: House
Anticipated Discharge: Today
Subjective/Interval History
-
Date of Service: January 10, 2024
Seen and examined at bedside. No acute events. States that this morning she was slightly constipated and had to strain to have a bowel movement, felt tired afterwards but otherwise no complaints. Denies chest pain, shortness of breath, fevers or
chills, nausea/vomiting/diarrhea, paresthesias, bleeding or bruising
She did have her orthostatic vital signs done this morning, blood pressure drop still consistent with orthostasis however she was not symptomatic. She states that she would like to go home today.
I spoke with her about precautions turning her fall risk, spoke with her about the medication regimen she is currently on. Plan for DC later today if able to urinate post Womack catheter
Objective Data
-
Labs:
Laboratory Results
01/10/24
07:51
WBC 10.1
Hgb 14.8
Hct 44.5
Plt Count 236
Sodium 136
Potassium 4.3
Chloride 101
Carbon Dioxide 25
BUN 23 H
Creatinine 0.8
Glucose 146 H
Calcium 10.0
Vital Signs:
Vital Signs
Temp Pulse Resp BP Pulse Ox
97.8 F 80 20 123/66 95
01/10/24 07:36 01/10/24 07:37 01/10/24 07:36 01/10/24 07:47 01/10/24 07:48
I&O
01/09/24 01/10/24 01/11/24
06:59 06:59 06:59
Intake Total 480 / 480
Output Total 1300 / 1300 1125 / 1125
Balance -1300 / -1300 -645 / -645
Review of Systems
-
History Source: Patient
All other systems: Reviewed and negative
Physical Exam
-
General: Well Nourished, No Apparent Distress and Comfortable
HEENT: Normocephalic, Atraumatic, Moist Mucous Membranes and Anicteric
Respiratory: Clear to Auscultation (Midlung to apices), Crackles (Bilateral bases) and Non Labored Respirations; Negative Wheezes or Rhonchi
Cardiac: Regular Rhythm, S1/S2 and Murmur; Negative Rub, JVD or Gallop
GI: Soft, Nontender, Nondistended and Normal Bowel Sounds
Musculoskeletal: No Clubbing, No Cyanosis and No Edema
Skin: Warm and Dry; Negative Rash
Neuro: AO x 3, Nonfocal/Grossly Intact and Central Nerve's Intact
Data Reviewed
-
Labs: Labs Reviewed by me
--- NOTE | 2024-01-10 11:55 | W.DCSUMMARY ---
Discharge Summary
Discharge Data
Date of Admission: 01/07/24
Date of Discharge: 01/10/24
-
Pending Results: No
Hospital Course
Presented to the hospital after a fall from home but occurred when she bent over to cloth picker an item on the floor. Orthostatic vital signs were significantly positive, taking orthostatic vital signs reproduced her symptoms. Medication adjustments
included discontinuation of standing dose hydralazine (was 10 mg 3 times daily). Instead, patient now take hydralazine only as needed if home blood pressure is greater than 190 mmHg systolic. Also added on midodrine 2.5 mg as needed for SBP <140
mmHg. On this regimen she still had positive orthostatic vital signs though is no longer symptomatic. Encouraged ongoing conservative measures with leg elevation and compression stockings. Should follow-up with primary care doctor in 7 days.
She did develop urine retention while in the hospital. Womack catheter was briefly placed. Trial of void was successful prior to discharge. Referral for urologist was placed. She is not a good candidate for alpha-1 inhibition with tamsulosin or
other similar agents due to her severe orthostatic history.
Discharge Plan
-
Patient Disposition: Home with Home Care
Discharge Diagnosis/Procedures: Orthostatic hypotension
Urinary retention
Condition: Fair
Diet: No restrictions
Activity: As tolerated
Additional Activity: Fall precautions: When changing positions, move slowly and have something to hold onto. Do not sit or stand up quickly
Driving Restrictions: As prior to admission
Bathing Restrictions: None
Other Services: VN, PT and OT
Specialty Instructions: Weigh Daily- Call MD for wt gain/loss 3 lbs overnight/5 lbs in 1 week
Instructions: Orthostatic hypotension
Referrals:
Karl Eubanks MD [Active] - (if difficulty voiding contact Dr Malgorzata Villa [phone])
Ned Rea DO [Family Provider] -
Additional Discharge Medication Instructions: Monitor home blood pressures regularly
Take midodrine 2.5 mg if systolic BP (top number) <140 mmHg
Take hydralazine 10 mg if systolic BP (top number) >190 mmHg
Prescriptions:
New
midodrine 5 mg Tablet
2.5 mg PO TID@0800,1300,1800 PRN (Reason: orthostasis) 30 Days Qty: 90 0RF
Rx Instructions:
Take midodrine if systolic blood pressure <140 mmHg
hydralazine 10 mg tablet
10 mg PO BID PRN (Reason: hypertension) 30 Days Qty: 60 0RF
Rx Instructions:
For systolic blood pressure >190 mmHg
Continued
omeprazole 20 MG capsule,delayed release(DR/EC)
20 mg PO DAILY
ascorbic acid (vitamin C) [Vitamin C] 500 MG tablet
1,000 mg PO DAILY Qty: 0
calcium carbonate-vitamin D3 1 EACH tablet
1 tab PO DAILY Qty: 0
escitalopram oxalate 5 MG tablet
5 mg PO DAILY
simvastatin 10 MG tablet
10 mg PO HS
diltiazem HCl 120 mg capsule,extended release 12 hr
120 mg PO BID
PreserVision AREDS-2 250-90-40-1 mg Capsule
1 tab PO DAILY Qty: 0
Eliquis 5 mg tablet
5 mg PO BID Qty: 30 0RF
Discontinued
hydralazine 10 mg Tablet
10 mg PO TID Qty: 0 0RF
meclizine 25 mg Tablet
25 mg PO Q8HPRN PRN (Reason: Dizziness) Qty: 0 0RF
Discharge Orders:
Discharge Patient (As Directed); Ordered 01/10/24
Ordered By: Gibran Fleming
Discharge Date and Time
Print Language: LATVIAN
--- NOTE | 2024-01-10 13:21 | CM ---
[place] is being discharged to home today. Son to provide transportation. VN has been arranged for start of care after discharge and [facility]
Plan: Discharge to home with [facility].
== END 2024-01-10 13:24 | disposition home health service (06) ==
LOC: 4 EAST ACU 21:03
PROVIDERS: Physician Assistant Medical; ADMITTING PHYSICIAN Hospitalist; ATTENDING PHYSICIAN Internal Medicine; CONSULT PHYSICIAN Specialist; EMERGENCY PHYSICIAN Emergency Medicine; FAMILY PHYSICIAN Internal Medicine
DX: I95.1 Orthostatic hypotension (principal); I10 Essential (primary) hypertension; R33.9 Retention of urine, unspecified; R53.1 Weakness; W18.30XA Fall on same level, unspecified, initial encounter; Y93.9 Activity, unspecified; Y92.009 Unspecified place in unspecified non-institutional (private) residence as the place of occurrence of the external cause; K21.9 Gastro-esophageal reflux disease without esophagitis; E78.00 Pure hypercholesterolemia, unspecified; K44.9 Diaphragmatic hernia without obstruction or gangrene; J84.9 Interstitial pulmonary disease, unspecified; R26.2 Difficulty in walking, not elsewhere classified; I48.0 Paroxysmal atrial fibrillation; I25.10 Atherosclerotic heart disease of native coronary artery without angina pectoris; G62.9 Polyneuropathy, unspecified; R73.03 Prediabetes; E78.5 Hyperlipidemia, unspecified; F32.A Depression, unspecified; Z96.653 Presence of artificial knee joint, bilateral; Z90.49 Acquired absence of other specified parts of digestive tract; Z82.49 Family history of ischemic heart disease and other diseases of the circulatory system; Z83.6 Family history of other diseases of the respiratory system; Z79.01 Long term (current) use of anticoagulants
CPT/HCPCS: 80048; 81003; 82607; 82746; 83036; 83735; 84443; 85025; 85027; 87070; 96361; 96374; 97116; 97163; 97167; 99285; G0378

== ENCOUNTER → 2024-02-25 13:34 | Outpatient (REF) | payer MEDICARE, SELFPAY | LOC: HWLAB 13:34 | PROVIDERS: ATTENDING PHYSICIAN Internal Medicine Critical Care Medicine | DX: R06.00 Dyspnea, unspecified (principal); J84.9 Interstitial pulmonary disease, unspecified | CPT/HCPCS: 36415; 71250; 82533 ==

== ENCOUNTER → 2024-09-21 15:00 | Outpatient (REF) | payer MEDICARE, SELFPAY ==
[2024-09-21 15:51] LABS: % Basophils 0.3 % (0-2); % Eosinophils 0.2 % (0-6); % Immature Granulocytes 0.4 % (0-0.5); % Lymphocytes 19.1 % (20.5-51.1); % Monocytes 7.4 % (1.7-9.3); % Neutrophils 72.6 % (42.2-75.2); Absolute Immature Granulocytes 0.1 10^3/uL (0-0.05); Absolute Lymphocytes 2.3 10^3/uL (1.2-3.4); Absolute Monocytes 0.9 10^3/uL (0.1-0.6); Absolute Neutrophils 8.9 10^3/uL (1.4-6.5); Hematocrit 45.7 % (37.0-47.0); Mean Corp Hgb Conc. 32.8 g/dL (33.0-37.0); Mean Corpuscular Hgb 31.6 pg (27.0-31.0); Mean Corpuscular Volume 96.2 fL (81.0-99.0); Mean Platelet Volume 11.5 fL (7.4-10.4); Nucleated Red Blood Cells % 0 %; Platelet Count 207 10^3/uL (130-400); Red Blood Cell Count 4.75 10^6/uL (4.20-5.40); Red Cell Dist. Width 13.2 % (11.5-14.5); White Blood Cell Count 12.2 10^3/uL (4.8-10.8)
[2024-09-21 15:57] LABS: NT-proBNP 345 pg/ml
[2024-09-21 15:58] LABS: AST (SGOT) 26 U/L (14-36); Alkaline Phosphatase 158 U/L (38-126); Blood Urea Nitrogen 23 mg/dl (7-17); Calcium 9.8 mg/dl (8.4-10.2); Carbon Dioxide 16 mmol/L (22-30); Chloride 104 mmol/L (98-107); Glucose 256 mg/dl (70-99); Potassium 4.4 mmol/L (3.5-5.1); Sodium 141 mmol/L (135-145); Total Bilirubin 0.7 mg/dl (0.2-1.3); Total Protein 7.6 g/dl (6.3-8.2); eGFR > 60.00
[2024-09-21 16:08] LABS: Albumin 4.5 g/dl (3.5-5.0)
[2024-09-21 16:28] LABS: Urine Albumin 2+ (Neg - Trace); Urine Bilirubin Negative (Negative); Urine Character Slightly Cloudy (Clear); Urine Color Amber; Urine Glucose Negative (Negative); Urine Ketone Negative (Negative); Urine Leukocyte 1+ (Negative); Urine Nitrite Negative (Negative); Urine Occult Blood 1+ (Negative); Urine Urobilinogen 1+ (Neg - 1+)
[2024-09-21 16:31] LABS: TSH Reflex To Free T4 0.75 uIU/ml (0.47-4.68)
[2024-09-21 17:14] LABS: Urine Bacteria Many (Negative)
[2024-09-21 19:08] LABS: ALT (SGPT) < 30 U/L (0-35)
== END ==
LOC: REG 15:00
PROVIDERS: ATTENDING PHYSICIAN Nurse Practitioner Family
DX: I48.0 Paroxysmal atrial fibrillation (principal); R06.09 Other forms of dyspnea; J84.9 Interstitial pulmonary disease, unspecified; I10 Essential (primary) hypertension; I25.10 Atherosclerotic heart disease of native coronary artery without angina pectoris; I95.1 Orthostatic hypotension
CPT/HCPCS: 36415; 71046; 80053; 81003; 81015; 83880; 84443; 85025; 87086; 93005

== ENCOUNTER 2024-12-07 06:55 | Inpatient (IN) | payer MEDICARE, SELFPAY ==
[2024-12-06] VITALS (17 sets, daily range): BP systolic 121–217; BP diastolic 50–153; PULSE 71–116; BMI 28.3
--- NOTE | 2024-12-06 10:05 | ED.GENMED ---
History of Present Illness
General
Chief Complaint: Breathing Problem
Source: patient, records and ambulance crew
Exam Limitations: none
Time Seen by Provider: 12/06/24 09:56
Nursing documentation reviewed up to this point in time: agreed with
History of Present Illness
History of Present Illness:
89-year-old female with a past medical history of hypertension, hyperlipidemia, interstitial lung disease, atrial fibrillation on Eliquis who presents to the emergency room via EMS for evaluation of dizziness and shortness of breath. Patient
reports that she deals with chronic shortness of breath related to her interstitial lung disease. She reports that over the past week or so she has noticed increasing shortness of breath with exertion; she says she has also noticed significant
positional dizziness. She says that she called EMS to come to the hospital this morning after she got up to go to the bathroom and felt that she could not even make it to the bathroom due to her symptoms. She does not have any chest pain. She has
no significant cough although she reports that she is just getting over a mild cold which included a cough a few weeks ago. She denies any abdominal or flank pain, nausea/vomiting/diarrhea. Denies any headache or neck pain, change in vision or
speech, focal weakness or numbness. She was last admitted to this hospital in January 2024 for and at that time was complaining of dizziness and had significantly positive orthostatic vital signs.
Past History
Past History
ED Past Medical History: GERD, HTN, Hypercholesterolemia and Other (Hiatal hernia, arthritis )
ED Past Surgical History: Appendectomy, Orthopedic (Bilateral knee replacement ) and Tonsilectomy
Social History
Tobacco: Non-smoker
Alcohol: Occasional
Drug: None
Employment: Retired
Family History
Family History: Other (Non-contributory )
Review of Systems
Review of Systems
All Other Systems: ROS reviewed and negative except as documented in HPI and ROS
Constitutional: Denies fever
Respiratory: Reports trouble breathing; Denies cough
Cardiac: Denies chest pain or palpitations
ABD/GI: Denies abdominal pain, nausea, vomiting or diarrhea
: Denies flank pain
Musculoskeletal: Denies neck pain or back pain
Neurological: Reports dizzy; Denies headache, weakness or numbness
Phy Exam
Physical Exam
Physical Exam:
General: Awake, alert, oriented x3; no acute distress
Head: Normocephalic, atraumatic
Eyes: Conjunctiva normal, EOMI, pupils equal round and reactive to light bilaterally
Throat: Airway intact, handling secretions
Neck: Trachea midline, no JVD
Lungs: Scattered rales; no tachypnea or hypoxia or increased work of breathing
Heart: Regular rate and rhythm, no murmurs, gallops, or rubs
Abd: Soft, non distended, nontender
Neuro: Cranial nerves grossly intact, speech fluid, motor and sensory grossly intact
Extremities: No edema in extremities, no calf tenderness, equal pulses in all extremities
Scores
Heart Failure Risk
Heart Failure Risk Score: Not Applicable
Heart Score for Chest Pain Patients
STEMI patient?: Not applicable
Withdrawal Assessment of Alcohol
Withdrawal Assessment Completed?: Not applicable
Course
Orders/Labs/Results
Orders:
Orders
12/06/24 09:58
Electrocardiogram (*1) Urgent
Reason for Study: Vertigo / Dizzy
EKG- Treatment ONCE
12/06/24 10:04
CR Chest - 2 Views Urgent
Comment:
Reason For Exam: dizzy, sob
12/06/24 10:05
Orthostatic VS- Treatment ONCE
12/06/24 10:19
Complete Blood Count/With Diff Urgent
Comprehensive Metabolic Panel Urgent
Magnesium Urgent
NT-proBNP Urgent
Troponin I Urgent
12/06/24 10:23
TSH Reflex To Free T4 Urgent
12/06/24 11:15
0.9% Sodium Chloride 1000 ml [Nss] 1,000 ml IV BOLUS
0.9% Sodium Chloride 500 ml [Nss] 500 ml IV BOLUS
12/06/24 11:31
Urinalysis Reflex To Culture Urgent
Date Specimen was Collected: 12/06/24
Time Specimen was Collected: 11:29
Urine Microscopic Reflex Cult Urgent
Abnormal Lab Results
12/06/24 12/06/24
10:19 11:31
MCH 31.1 H pg
(27.0-31.0)
MCHC 32.9 L g/dL
(33.0-37.0)
MPV 10.8 H fL
(7.4-10.4)
Absolute Monos (auto) 0.7 H 10^3/uL
(0.1-0.6)
Chloride 109 H mmol/L
(98-107)
BUN 21 H mg/dl
(7-17)
Glucose 146 H mg/dl
(70-99)
Alkaline Phosphatase 141 H U/L
(38-126)
Ur Occult Blood Reflex 1+ A
(Negative)
Urine RBC 3-6 A /HPF
(0-2)
Urine Bacteria (Reflex) Few A
(Negative)
12/06/24 10:19
12/06/24 10:19
Vital Signs
Initial and Last Documented VS:
Initial Vital Signs
Temp Pulse Resp Pulse Ox
36.6 C 79 16 100
12/06/24 09:59 12/06/24 09:59 12/06/24 09:59 12/06/24 09:59
Last Documented Vital Signs
Temp Pulse Resp BP Pulse Ox
36.6 C 76 17 132/86 95
12/06/24 09:59 12/06/24 13:00 12/06/24 13:00 12/06/24 12:55 12/06/24 13:00
MDM/Problems Addressed
Differential Diagnosis Includes:
Dysrhythmia, CHF, electrolyte derangement, dehydration, anemia, pneumonia, interstitial lung disease exacerbation/progression
MDM/Problems Addressed:
89-year-old female presents for evaluation of positional dizziness and shortness of breath with exertion worsening over the past week. Vitals and exam as above. EKG shows sinus rhythm here. Will plan to place an IV send labs including a CBC and a
CMP, troponin and proBNP. Check chest x-ray. Will send urinalysis. Check orthostatic vital signs. Will monitor closely reassess after the above.
Labs reviewed: CBC shows no anemia, CMP no significant abnormalities. Troponin undetectable. proBNP marginal. Chest x-ray shows no changes�notably no signs of acute CHF�she has mild rales suspect related to interstitial lung disease but no other
signs of CHF on exam and in my judgment if anything she appears mildly hypovolemic. To support this her orthostatic vital signs were markedly positive here. Suspect this is the likely etiology of to her symptoms as they are clearly quite
positional. Will plan to provide some IV fluids and will reassess.
Patient still markedly orthostatic despite fluids. Furthermore she complains of feeling too weak to walk. This is a difficult situation because although she is very orthostatic, when she is resting her blood pressure is actually quite high which
makes it unlikely that polypharmacy alone accounts for her orthostasis. She has not responded well to fluids. There could be some element of dysautonomia, it appears she is already on midodrine after recent hospitalization a year ago.. I had a
long discussion with the patient and she is adamant that she does not feel that she can function at this point with her degree of symptoms and she currently lives independently in the community. Will plan to admit, continue fluids. She will need
likely some medication adjustment to manage her blood pressures and orthostatic symptoms. Discussed case with hospitalist.
Chronic conditions affecting care:
Interstitial lung disease
*Radiology
Radiology exam reviewed: preliminary read by ED provider and radiology read reviewed
*Pulse Oximetry
SaO2: 100
Oxygen Mode of Delivery: Room air
Patient hypoxic: no (100%)
*EKG
Interpreted by ED Provider?: Yes
Heart Rate: 79
Rate: normal
Rhythm: sinus
Kinney: normal axis
Interval: normal interval
QRS Pattern: normal QRS
Ischemia: other (Septal infarct age-indeterminate)
*Critical Care Note
Total Time (30-74mins, 75-104mins- exclusive of procedures): Not Applicable
Data Reviewed
Review of Other/Old Records Reveals: Labs and Records
Source: patient, records and ambulance crew
Patient Management
Social determinants of health affecting care: Living situation (Lives independently in the community and unable to care for herself due to her symptoms which impacts decision to hospitalize)
Discussion with other providers: Hospitalist (Discussed with hospitalist)
Escalation/DeEscalation of care consider admission/obs:
Admission indicated
ED Attending Note
-
Portions of this chart may have been created with voice recognition software.� Occasional wrong word or��sound alike� substitutions may have occurred due to the inherent limitations of voice recognition software.
Discharge Plan
Departure
Patient Disposition: Admit
Date of Disposition: 12/06/24
Time of Disposition: 13:12
Admit to doctor: Wagner
Presentation/result/management discussed w/ accepting MD/DO: Hospitalist
Discharge Problem:
Generalized weakness, Orthostatic dizziness, Ambulatory dysfunction
Prescriptions:
No Action
omeprazole 20 MG capsule,delayed release(DR/EC)
20 mg PO DAILY
ascorbic acid (vitamin C) [Vitamin C] 500 MG tablet
1,000 mg PO DAILY Qty: 0
calcium carbonate-vitamin D3 1 EACH tablet
1 tab PO DAILY Qty: 0
escitalopram oxalate 5 MG tablet
5 mg PO DAILY
simvastatin 10 MG tablet
10 mg PO HS
diltiazem HCl 120 mg capsule,extended release 12 hr
120 mg PO BID
PreserVision AREDS-2 250-90-40-1 mg Capsule
1 tab PO DAILY Qty: 0
Eliquis 5 mg tablet
5 mg PO BID Qty: 30 0RF
midodrine 5 mg Tablet
2.5 mg PO TID@0800,1300,1800 PRN (Reason: orthostasis) 30 Days Qty: 90 0RF
Rx Instructions:
Take midodrine if systolic blood pressure <140 mmHg
hydralazine 10 mg tablet
10 mg PO BID PRN (Reason: hypertension) 30 Days Qty: 60 0RF
Rx Instructions:
For systolic blood pressure >190 mmHg
Referrals:
Ned Rea DO [Family Provider, Internal Medicine]
Interventions
Interventions:
*Risk Screen - Suicide Last Done: 12/06/24 10:05
*General Assessment Last Done: 12/06/24 10:05
*Neglect/Abuse Screening Last Done: 12/06/24 10:05
*ED- Fall Risk Assessment Last Done: 12/06/24 10:07
*ED COVID-19 Vaccine History Last Done: 12/06/24 10:07
ED- Cardiac Assessment Last Done: 12/06/24 10:53
ED- Neurological Assessment Last Done: 12/06/24 10:53
ED- Pulmonary Assessment Last Done: 12/06/24 10:53
Discharge Date and Time
Print Language: FAROESE
[2024-12-06 10:26] LABS: Hematocrit 44.1 % (37.0-47.0); Hemoglobin 14.5 g/dL (12.0-16.0); Mean Corp Hgb Conc. 32.9 g/dL (33.0-37.0); Mean Corpuscular Volume 94.6 fL (81.0-99.0); Nucleated Red Blood Cells % 0 %; Platelet Count 224 10^3/uL (130-400); Red Cell Dist. Width 13.2 % (11.5-14.5)
[2024-12-06 10:50] LABS: Troponin I < 0.012 ng/ml
[2024-12-06 10:56] LABS: ALT (SGPT) 19 U/L (0-35); AST (SGOT) 25 U/L (14-36); Albumin 4.3 g/dl (3.5-5.0); Alkaline Phosphatase 141 U/L (38-126); Calcium 9.8 mg/dl (8.4-10.2); Carbon Dioxide 27 mmol/L (22-30); Chloride 109 mmol/L (98-107); Glucose 146 mg/dl (70-99); Magnesium 2.1 mg/dl (1.6-2.3); Potassium 4.7 mmol/L (3.5-5.1); Sodium 140 mmol/L (135-145); Total Protein 7.0 g/dl (6.3-8.2); eGFR > 60.00
[2024-12-06 11:10] LABS: Blood Urea Nitrogen 21 mg/dl (7-17)
[2024-12-06] MEDS: NSS 1000 IV ×2 (11:21→18:56)
[2024-12-06 11:49] LABS: Urine Character Clear (Clear)
[2024-12-06 12:17] LABS: Urine Squamous Cell >30 /LPF (Few)
[2024-12-06] MEDS: NSS 500 IV (13:26)
--- NOTE | 2024-12-06 13:29 | HPS.HSE ---
Family Physician
-
Family Physician: Ned Rea
Chief Complaint
-
dizzy
sob
unsteady
History of Present Illness
89-year-old female with a past medical history of hypertension, hyperlipidemia, interstitial lung disease, atrial fibrillation on Eliquis who presents to the emergency room via EMS for evaluation of dizziness and shortness of breath. today morning
she was dizzy ans shaky as soon as she got up from the bed. she felt sob at that time. she got worried and called 911. denied RUANO, fever, chills, cough,congestion. denied chest pain. she has chronic sob from ILD. denied abdominal pain,n,v,d. denied
dysuria or hematuria.
patient as noted orthostatic in the ER. received fluids. admitting for further management.
Medical History
Past Medical History
Past Medical History: Reports Other
Additional Past Medical History:
Anxiety, IBS, hypertension, hyperlipidemia, SVT, interstitial lung disease, coronary artery disease, orthostatic hypotension, degenerative disc disease, GERD, paroxysmal A-fib
Past Surgical History: Reports Other
Additional Past Surgical History:
Bilateral knee replacement, hip replacement, hysterectomy, tonsillectomy, appendectomy, shoulder replacement, routine surgery, bilateral cataracts, hernia repair, left hip fever fracture
Social History
Tobacco: Non-smoker
Alcohol: None
Drug: None
Living: Alone
Family History
Family History: Not pertinent
Allergies / Home Medications
Allergies reflects when Allergies were last updated in [facility].
Home Medications with original date entered in [facility]
Allergy/Medication List:
Allergies
Allergy/AdvReac Type Severity Reaction Status Date / Time
No Known Allergies Allergy Verified 08/23/23 20:01
Home Medications
omeprazole 20 mg capsule,delayed release 20 mg PO DAILY Gastrointestinal issue 03/09/10
ascorbic acid (vitamin C) 500 mg tablet (Vitamin C) 1,000 mg PO DAILY Supplement ##0 03/22/16
calcium 500 mg (as carbonate)-vitamin D3 3.125 mcg (125 unit) tablet 1 tab PO DAILY Supplement ##0 03/22/16
escitalopram oxalate 5 mg tablet 5 mg PO DAILY Mental Health 10/19/18
simvastatin 10 mg tablet 10 mg PO HS High cholesterol 10/19/18
diltiazem HCl 120 mg capsule,extended release 12 hr 120 mg PO BID Heart Failure 08/25/23
vit C 250 mg-vit E 90 mg-zinc 40 mg-copper 1 [id number] capsule (PreserVision AREDS-2) 1 tab PO DAILY Supplement ##0 08/25/23
apixaban 5 mg tablet (Eliquis) 5 mg PO BID Blood clot prevention/tx #30 tabs 08/26/23
hydralazine 10 mg tablet 10 mg PO BID PRN hypertension 1 month #60 tabs 01/10/24
midodrine 5 mg tablet 2.5 mg (1/2 x 5 mg) PO TID@0800,1300,1800 PRN orthostasis 1 month #90 tabs 01/10/24
Review of Systems
-
Constitutional: Reports No Symptoms
EENT: Reports No Symptoms
Respiratory: Reports No Symptoms
Cardiac: Reports No Symptoms
Abdomen/GI: Reports No Symptoms
: Reports No Symptoms
Musculoskeletal: Reports No Symptoms
Skin: Reports No Symptoms
Neurological: Reports Dizzy
Endocrine: Reports No Symptoms
Hematologic/Lymphatic: Reports No Symptoms
Psych: Reports No Symptoms
Physical Exam
Vital Signs
Vital Signs
Temp Pulse Resp BP Pulse Ox
97.8 F 76 17 132/86 95
12/06/24 09:59 12/06/24 13:00 12/06/24 13:00 12/06/24 12:55 12/06/24 13:00
Physical Exam
General: Well Developed, Well Nourished and No Apparent Distress
HEENT: NormoCephalic, Moist mucous membranes and Atraumatic
Respiratory: Clear
Cardiac: S1/S2 and Regular Rhythm; No Murmur or Rub
GI: Soft, Non Tender, Non Distended and Normal Bowel Sounds; No Organomegaly
Rectal: Deferred by Provider
Musculoskeletal: No Clubbing, No Cyanosis and No Edema
Skin: No Rash
Neuro: AO x 3 and Nonfocal/grossly intact
Psych: Calm
Laboratory Results
-
12/06/24 10:19
12/06/24 10:19
Laboratory Results
Total Bilirubin 0.7 mg/dl (0.2-1.3) 12/06/24 10:19
AST 25 U/L (14-36) 12/06/24 10:19
ALT 19 U/L (0-35) 12/06/24 10:19
Alkaline Phosphatase 141 U/L (38-126) H 12/06/24 10:19
Troponin I < 0.012 ng/ml 12/06/24 10:19
Data Reviewed
-
Diagnostic Radiology: Report Reviewed by me
Lab Data: Labs Reviewed by me
Impression/Plan
-
# generalized weakness/positional dizziness secondary to orthostatic hypotension
# Supine hypertension
-Fluids continued
- FIONA stockings continued
- PT consulted
- EKG with impression of normal sinus rhythm, incomplete right bundle branch block
#SOB unclear cause
#HXt of ILD
-chest x ray with no active disease
-BNP, trop negative
-oxygenating very well
-ctm
#Peripheral Neuropathy
-Chronic, no metabolic etiology is known
#Paroxysmal Atrial Fibrillation
-EKG with normal sinus rhythm, incomplete right bundle branch block
-Diltiazem continued
-Eliquis continued
#GERD / Hiatal Hernia
- Omeprazole continue
#DVT proph: Eliquis
#Code Status: Full Code
#Diet: House
--- NOTE | 2024-12-06 14:21 | W.PN.UPDATE ---
Update Note
Progress Note Update
This note serves as an addendum to the H&P by licensed marriage and family therapist AVINASH
Anat CHUCK
HPI
89F HX HTN, HLD, interstitial lung disease, AF on Eliquis bib EMS
- for evaluation of dizziness and shortness of breath
- HX chronic sob from ILD.
- felt dizzy ans shaky as soon as she got up from the bed.
- she felt sob at that time. she got worried and called 911.
ROS
- denied RUANO, fever, chills, cough,congestion. denied chest pain. denied abdominal pain,n,v,d. denied dysuria or hematuria.
Noted orthostatic in the ER.
- received fluids
Vital Signs
Temp Pulse Resp BP Pulse Ox
97.8 F 74 17 178/78 94
12/06/24 09:59 12/06/24 14:01 12/06/24 14:01 12/06/24 14:01 12/06/24 14:01
PE
Gen:No Apparent Distress
HEENT: Moist mucous membranes
Neck:
Lungs: clear
Cor: S1/S2 and Regular Rhythm;
Abdomen: Soft, Non Tender, Non Distended
STRIKE OUT MACHINE OPERATOR:AO x 3 and Nonfocal/grossly intact
Psych:
Relevant Data
proBNP 373
TPNI < 0.012
ASSESSMENT & PLAN
Generalized weakness
Orthostatic Sx with postural dizziness 2/2 POS orthostatic hypotension
- EKG with impression of normal sinus rhythm, incomplete right bundle branch block
- IVF
- fall precaution
- FIONA stockings continued
- PT consulted
Chr SOB unclear cause
HX ILD - not on Home O2
- NEG CXR for active disease
- NEG BNP, NEG TPNI
- Sat O2 well
To consider Home O2 evaluation prior to DC
Peripheral Neuropathy
- Chronic
Paroxysmal Atrial Fibrillation
-EKG with normal sinus rhythm, incomplete right bundle branch block
- Diltiazem continued
- Eliquis continued
DVT proph: Eliquis
Full Code
Obs TLM
--- NOTE | 2024-12-06 16:18 | CM ---
CM reviewed chart and met with pt bedside in ED. Lives in 5th floor apartment, no RUMA, building has elevator
Has rollator, walker and shower chair.
Independent in ADLs, personal care and ambulation at baseline. Ambulates with rollator.
Hx VN in past, has been to [facility] in past.
PCP: Ned Rea
Pharmacy: [facility]
Discharge plan: Anticipate home, watch for needs
[2024-12-06] MEDS: ELIQUIS 5 MG PO (19:17)
--- NOTE | 2024-12-06 20:22 | PTCARENOTE ---
Pt transferred to 4W. AAOx3 Pt able to stand on scale walk to BR and to bed with Ax1 w/ RW. Pt does get DUNBAR. No c/o pain. Pt oriented to room. Safety measures in place, call martin within reach.
[2024-12-06] MEDS: TYLENOL 650 MG PO (21:53)
[2024-12-06] MEDS: LIPITOR 10 MG PO (21:53)
[2024-12-06] MEDS: APRESOLINE 10 MG PO (22:02)
[2024-12-06] MEDS: CARDIZEM SR 120 MG PO (22:08)
[2024-12-07] VITALS (11 sets, daily range): BP systolic 101–200; BP diastolic 56–110; PULSE 66–107
[2024-12-07] MEDS: NSS IV (08:11)
[2024-12-07] MEDS: OCUVITE SOFTGEL 1 CAP PO (08:34)
[2024-12-07] MEDS: CARDIZEM SR 120 MG PO ×2 (08:34→20:40)
[2024-12-07] MEDS: ELIQUIS 5 MG PO ×2 (08:34→20:40)
[2024-12-07] MEDS: PROTONIX 40 MG PO (08:34)
[2024-12-07] MEDS: FLORINEF 0.05 MG PO ×2 (08:38→20:41)
[2024-12-07] MEDS: TOPROL XL 12.5 MG PO (08:38)
--- NOTE | 2024-12-07 09:10 | W.PN.HOSP.TC ---
Today's Communication/Plan
-
start low dose BB
Florinef
Stop IVF
Ortho vitals BID
Will require at least 72 hours monitoring in hospital while adjusting her medications
Assessment / Plan
Assessment / Plan
Physical Exam
General: Well Developed, Well Nourished and No Apparent Distress
HEENT: Normocephalic, Moist mucous membranes and Atraumatic
Respiratory: Clear
Cardiac: S1/S2 and Regular Rhythm; No Murmur or Rub
GI: Soft, Non Tender, Non Distended and Normal Bowel Sounds;
Musculoskeletal: No Clubbing, No Cyanosis and No Edema
Skin: No Rash
Neuro: AO x 3 and Nonfocal/grossly intact
Psych: Calm
# Recurrent severe symptomatic autonomic postural hypotension
She complained of generalized weakness/positional dizziness secondary to orthostatic hypotension that was impacting her daily life.
Stop IVF
Will start low dose Florinef and low dose BB to help with tachycardia asscociated with standing.
c/w FIONA stockings
- PT consulted
- EKG with impression of normal sinus rhythm, incomplete right bundle branch block
#SOB unclear cause
#HX of ILD
No hypoxia
will do ambulatory Sao2 upon discharge
#Peripheral Neuropathy
-Chronic, non specific
#Paroxysmal Atrial Fibrillation
-EKG with normal sinus rhythm, incomplete right bundle branch block
-Diltiazem continued
-Eliquis continued
#GERD / Hiatal Hernia
#DVT proph: Eliquis
#Code Status: Full Code
Total time spent to see the patient, examine the patient, review data and lab result, discuss treatment plan with patient, nursing staff around 55 minutes
Anticipated Discharge: > 48 hours
Subjective/Interval History
-
Date of Service: December 07, 2024
Not dizzy while in bed
Feels uncomfortable with her standing dizziness
Objective Data
-
Vital Signs:
Vital Signs
Temp Pulse Resp BP Pulse Ox
98.1 F 71 18 193/76 96
12/07/24 07:46 12/07/24 07:46 12/07/24 07:46 12/07/24 07:46 12/07/24 07:46
[2024-12-07] MEDS: TYLENOL 650 MG PO ×2 (11:48→21:42)
--- NOTE | 2024-12-07 12:57 | CM ---
CM reviewed chart, patient seen bedside. PT/OT held due to patients BP, will watch for recommendations. CM will continue to follow for all discharge planning needs.
Plan; home, watch for VN/SNF recommendations
[2024-12-07] MEDS: LIPITOR 10 MG PO (20:43)
[2024-12-08] VITALS (7 sets, daily range): BP systolic 87–174; BP diastolic 53–98; PULSE 63–89
[2024-12-08 01:14] LABS: Glucose - Point of Care 143 mg/dl (70-99)
[2024-12-08] MEDS: TYLENOL 650 MG PO ×2 (01:47→21:44)
[2024-12-08] MEDS: OCUVITE SOFTGEL 1 CAP PO (08:28)
[2024-12-08] MEDS: ELIQUIS 5 MG PO ×2 (08:28→20:23)
[2024-12-08] MEDS: FLORINEF 0.05 MG PO ×2 (08:29→20:23)
[2024-12-08] MEDS: PROTONIX 40 MG PO (08:30)
[2024-12-08] MEDS: CARDIZEM SR 120 MG PO ×2 (08:30→20:23)
[2024-12-08] MEDS: TOPROL XL 12.5 MG PO (08:30)
--- NOTE | 2024-12-08 09:28 | W.PN.HOSP.TC ---
Today's Communication/Plan
-
c/w current regimen
Fall precautions
Assessment / Plan
Assessment / Plan
Physical Exam
General: Well Developed, Well Nourished and No Apparent Distress
HEENT: Normocephalic, Moist mucous membranes and Atraumatic
Respiratory: Clear
Cardiac: S1/S2 and Regular Rhythm; No Murmur or Rub
GI: Soft, Non Tender, Non Distended and Normal Bowel Sounds;
Musculoskeletal: No Clubbing, No Cyanosis and No Edema
Skin: No Rash
Neuro: AO x 3 and Nonfocal/grossly intact
Psych: Calm
# Recurrent severe symptomatic autonomic postural hypotension
She complained of generalized weakness/positional dizziness secondary to orthostatic hypotension that was impacting her daily life.
Stopped IVF
Still significant orthostatic hypotension
c/w low dose Florinef and low dose BB to help with tachycardia associated with standing.
c/w FIONA stockings
- PT consulted
- EKG with impression of normal sinus rhythm, incomplete right bundle branch block
#SOB unclear cause
#HX of ILD
No hypoxia
For ambulatory Sao2 upon discharge
#Peripheral Neuropathy
-Chronic, non specific
#Paroxysmal Atrial Fibrillation
-EKG with normal sinus rhythm, incomplete right bundle branch block
-Diltiazem continued
-Eliquis continued
#GERD / Hiatal Hernia
#DVT proph: Eliquis
#Code Status: Full Code
Total time spent to see the patient, examine the patient, review data and lab result, discuss treatment plan with patient, nursing staff around 55 minutes
Anticipated Discharge: > 48 hours
Subjective/Interval History
-
Date of Service: December 08, 2024
Objective Data
-
Vital Signs:
Vital Signs
Temp Pulse Resp BP Pulse Ox
97.8 F 60 18 165/67 93
12/08/24 03:45 12/08/24 03:45 12/08/24 03:45 12/08/24 03:45 12/08/24 03:45
I&O
12/07/24 12/08/24 12/09/24
06:59 06:59 06:59
Intake Total 460 / 460
Balance 460 / 460
--- NOTE | 2024-12-08 12:16 | PN.CDI ---
Addendum entered and electronically signed by Mackenzie Urrutia MD 12/08/24 12:30:
Autonomic postural hypotension
Original Note:
CDI
- -
CDI:
Physician Documentation Request
Admit Date: 12/07/24 06:55
Dear Doctor Ghada,
Please review the following and provide your response in the progress notes.
Current documentation includes a diagnosis of hypotension.
Clinical Indicators:
ER, 12/06
#...still markedly orthostatic despite fluids.
#...Furthermore she complains of feeling too weak to walk.
#This is a difficult situation because although she is very orthostatic,
#...when she is resting her blood pressure is actually quite high which
#...makes it unlikely that polypharmacy alone accounts for her orthostasis.
#She has not responded well to fluids.
#There could be some element of dysautonomia,
#...it appears she is already on midodrine after recent hospitalization a year ago..
PN, 12/08
# Recurrent severe symptomatic autonomic postural hypotension
#...generalized weakness/positional dizziness secondary to orthostatic hypotension
#...that was impacting her daily life.
#Stopped IVF
#Still significant orthostatic hypotension
#c/w low dose Florinef and low dose BB to help with tachycardia associated with standing.
#c/w FIONA stockings
#- EKG with impression of normal sinus rhythm, incomplete right bundle branch block
#SOB unclear cause
#Peripheral Neuropathy
#...-Chronic, non specific
Based on the above and your clinical assessment, please clarify which of the following is the most likely etiology of the above symptoms and treatment rendered:
Multi-system degeneration of the autonomic nervous system
Autonomic postural hypotension
Hypotension - unknown type/etiology
Other(please specify)
Use of terms such as suspected, likely, concern for, or probable (associated with a specific diagnosis that is being evaluated, monitored, or treated as if it exists) are acceptable and can be coded in the inpatient setting, when documented at the
time of discharge.
Thank you,
Fanta Urrutia RN BSN CCDS
CDI Specialist
Please contact via tiger text
Please use your independent medical judgment in providing your response.
--- NOTE | 2024-12-08 13:17 | CON.CAR ---
Addendum entered and electronically signed by Henrry Bruce MD 12/08/24 17:22:
I saw and examined the patient.
The Family Practice Resident's note was reviewed and I agree with the note. I performed all data and image/tracing review as I entered them below.
Comment: Challenging case. She seemed to do poorly with the one dose of midodrine. I agree with trying Florinef although this will have a slower onset of action. We have added a night time dose of captopril to minimize severe supine HTN. Increase
exercise and compression may help.
Original Note:
Consultation
Consultation Request
Date/Time Consultation Requested: 12/08/24 10:28
Date/Time Consultation Performed: 12/08/24 13:00
Requesting Provider: Dr. Mackenzie Urrutia
Performing Provider: Dr. Henrry Bruce
Reason for Consultation: Orthostatic hypotension
Medical History
-
Chief Complaint: Orthostatic hypotension
History of Present Illness:
89-year-old female with past medical history of paroxysmal A-fib on Eliquis, CAD, orthostatic hypotension, interstitial lung disease, SVT, peripheral neuropathy, anxiety, IBS, hypertension, hyperlipidemia, degenerative disc disease, GERD presented
to the ED for dizziness and shortness of breath. Yesterday morning she started to feel dizzy, shaky and short of breath after she got up from bed. She got scared at that time and called 911. She denies any fever, chills, chest pain, heart
palpitations, nausea, vomiting, diarrhea, dysuria. She has baseline shortness of breath from interstitial lung disease.
In the ED blood pressure 185/74, notably orthostatic with vitals supine 181/67 then sitting 148/88. HR changed from 72 to 116 while standing. Cr 0.7. Trop (-). EKG normal sinus rhythm with incomplete RBBB, chest x-ray consistent with chronic
interstitial lung disease. She was given a 1L fluid bolus and admitted for further work up.
Past Medical History
Past Medical History: Other (Anxiety, IBS, hypertension, hyperlipidemia, SVT, interstitial lung disease, coronary artery disease, orthostatic hypotension, degenerative disc disease, GERD, paroxysmal A-fib, peripheral neuropathy)
Past Surgical History: Other (Bilateral knee replacement, hip replacement, hysterectomy, tonsillectomy, appendectomy, shoulder replacement, routine surgery, bilateral cataracts, hernia repair, left hip fever fracture)
Social History
Tobacco: Non-Smoker
Alcohol: None
Drug: None
Personal: Single
Living: Alone
Family History
Family History: Other (Father - CAD, Mother - COPD, Sister - COPD, CAD)
Allergies / Home Medications
Allergy/AdvReac Type Severity Reaction Status Date / Time
No Known Allergies Allergy Verified 08/23/23 20:01
�Medication �Instructions �Recorded �Confirmed �Type
omeprazole 20 mg capsule,delayed 20 mg PO DAILY Gastrointestinal 03/09/10 12/06/24 History
release issue
ascorbic acid (vitamin C) 500 mg 1,000 mg PO DAILY Supplement ##0 03/22/16 12/06/24 History
tablet (Vitamin C)
calcium 500 mg (as 1 tab PO DAILY Supplement ##0 03/22/16 12/06/24 History
carbonate)-vitamin D3 3.125 mcg
(125 unit) tablet
simvastatin 10 mg tablet 10 mg PO HS High cholesterol 10/19/18 12/06/24 History
diltiazem HCl 120 mg 120 mg PO BID Heart Failure 08/25/23 12/06/24 History
capsule,extended release 12 hr
vit C 250 mg-vit E 90 mg-zinc 40 1 tab PO DAILY Supplement ##0 08/25/23 12/06/24 History
mg-copper 1 [id number]
capsule (PreserVision AREDS-2)
apixaban 5 mg tablet (Eliquis) 5 mg PO BID Blood clot 08/26/23 12/06/24 Rx
prevention/tx #30 tabs
acetaminophen 500 mg tablet 1,000 mg PO HS Pain 12/06/24 12/06/24 History
(Tylenol Extra Strength)
hydralazine 10 mg tablet 10 mg PO TIDPRN PRN hypertension 12/06/24 12/06/24 History
Review of Systems
-
History Source: Patient
EENT: No Symptoms
Respiratory: Trouble Breathing
Cardiac: No Symptoms
Abdomen/GI: No Symptoms
Neurological: Dizzy, Weakness and Other (When standing )
Physical Exam
Vital Signs
Temp Pulse Resp BP Pulse Ox
97.9 F 53 18 125/75 96
12/08/24 11:00 12/08/24 11:00 12/08/24 11:00 12/08/24 11:00 12/08/24 11:00
Lab Results
12/06/24 10:19
12/06/24 10:19
Troponin I < 0.012 ng/ml 12/06/24 10:19
[id number] Pept 373 pg/ml 12/06/24 10:19
Physical Exam
General: No Apparent Distress and Comfortable
Respiratory: Crackles (Bilateral lower lung blanco )
Cardiac: S1/S2 and Regular Rhythm (Bradycardic )
GI: Soft, Non Tender, Non Distended and Normal Bowel Sounds
Musculoskeletal: No Edema
Skin: Warm and Dry
Neuro: AO x 3
Psych: Calm
Impression / Plan
-
89-year-old female with past medical history of paroxysmal A-fib on Eliquis, CAD, orthostatic hypotension, interstitial lung disease, SVT, peripheral neuropathy, anxiety, IBS, hypertension, hyperlipidemia, degenerative disc disease and GERD
presenting with orthostatic hypotension.
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
Orthostatic hypotension
HTN
--Patient endorses intense dizziness, weakness, shortness of breath with standing making it ' impossible' things on her own.
--Orthostatic vitals today supine 172/77, standing 87/53. HR 72 to 89 when standing.
--Patient started on fludrocortisone acetate 0.05 twice daily and metoprolol 12.5 daily since hospitalization for orthostatic hypotension and associated tachycardia with standing.
--Continue fludrocortisone and monitor - d/c metoprolol
--Originally thinking to add Midodrine 5mg 07:00 and 13:00, however after discussing further with primary physician, pt was very hypertensive after one dose of midodrine here so will hold off for now.
--Start captopril 6.25 qHS
--Continue diltiazem 120 BID
--Continue hydralazine 10mg TID PRN for systolic >190
--Abdominal binder and cont FIONA thigh high stockings
--PT/OT
Paroxysmal atrial fibrillation
--Currently in sinus shea
--CV2 at least 4 for age >75, gender, and HTN
--Cont home Eliquis and diltiazem
Hx CAD
--LDL 67 10/14/2022
--continue atorvastatin 10
--Lexiscan 11/04/23 was (-) for ischemia, EF 68%
--Echo 08/25/23 LVEF 60-65% with trace MR, trace TR
--Cardiac cath 12/27/19 revealed nonobstructive atherosclerosis (LAD diagonal 40% ostial stenosis, circumflex mild ostial narrowing of 30%) and hyperdynamic LV function
SOB/Interstitial lung disease
GERD/Hiatal hernia
Peripheral neuropathy
DVT on eliquis
Full Code
[2024-12-08] MEDS: LIPITOR 10 MG PO (21:40)
[2024-12-08] MEDS: CAPOTEN 6.25 MG PO (21:40)
[2024-12-09] MEDS: TYLENOL 650 MG PO (02:46)
[2024-12-09 03:47] VITALS: BP 123/45
[2024-12-09 07:45] VITALS: BP 130/84; BP 154/81; BP 178/74; PULSE 59; PULSE 65; PULSE 89
--- NOTE | 2024-12-09 08:37 | W.PN.HOSP.TC ---
Addendum entered and electronically signed by Mackenzie Urrutia MD 12/09/24 12:41:
Addendum
I updated PCP Dr. Rea about dc plan
End
Original Note:
Today's Communication/Plan
-
dc with home health
Assessment / Plan
Assessment / Plan
Physical Exam
General: Well Developed, Well Nourished and No Apparent Distress
HEENT: Normocephalic, Moist mucous membranes and Atraumatic
Respiratory: Clear
Cardiac: S1/S2 and Regular Rhythm; No Murmur or Rub
GI: Soft, Non Tender, Non Distended and Normal Bowel Sounds;
Musculoskeletal: No Clubbing, No Cyanosis and No Edema
Skin: No Rash
Neuro: AO x 3 and Nonfocal/grossly intact
Psych: Calm
# Recurrent severe symptomatic autonomic postural hypotension
She complained of generalized weakness/positional dizziness secondary to orthostatic hypotension that was impacting her daily life.
Stopped IVF
less severe orthostatic hypotension
c/w low dose Florinef for now, stopped hydralazine, c/w Cardizem. Hopefully she will continue to improve, advised to f/w PCP
c/w abd binder.
c/w FIONA stockings
- PT consulted
- EKG with impression of normal sinus rhythm, incomplete right bundle branch block
#SOB unclear cause
#HX of ILD
No hypoxia
For ambulatory Sao2 upon discharge
#Peripheral Neuropathy
-Chronic, non specific
#Paroxysmal Atrial Fibrillation
-EKG with normal sinus rhythm, incomplete right bundle branch block
-Diltiazem continued
-Eliquis continued
#GERD / Hiatal Hernia
#DVT proph: Eliquis
#Code Status: Full Code
Total discharge time spent to see the patient, examine the patient, review data and lab result, discuss discharge plan with patient, nursing staff around 65 minutes
Anticipated Discharge: Today
Subjective/Interval History
-
Date of Service: December 09, 2024
She feels betetr, less dizzy
Objective Data
-
Vital Signs:
Vital Signs
Temp Pulse Resp BP Pulse Ox
97.5 F 89 16 130/84 95
12/09/24 07:45 12/09/24 07:45 12/09/24 07:45 12/09/24 07:45 12/09/24 07:45
I&O
12/08/24 12/09/24 12/10/24
06:59 06:59 06:59
Intake Total 460 / 460 720 / 720
Balance 460 / 460 720 / 720
[2024-12-09] MEDS: ELIQUIS 5 MG PO (09:02)
[2024-12-09] MEDS: PROTONIX 40 MG PO (09:02)
[2024-12-09] MEDS: FLORINEF 0.05 MG PO (09:02)
[2024-12-09] MEDS: CARDIZEM SR 120 MG PO (09:02)
[2024-12-09] MEDS: OCUVITE SOFTGEL 1 CAP PO (09:04)
[2024-12-09 10:12] VITALS: BP 184/105
[2024-12-09 10:13] VITALS: BP 181/105
--- NOTE | 2024-12-09 11:09 | CM ---
CM reviewed chart, patient seen bedside, discussed plan for discharge today. Patient reports son will provide transportation home. CM discussed therapy recommendations of home health, patient agreeable to referral to [facility], TT to liaison. IMM
reviewed, signed, placed in chart, patient reports she already has a copy. CM will continue to follow for all discharge planning needs.
Plan; home with VN
[2024-12-09 11:27] VITALS: BP 168/79
--- NOTE | 2024-12-09 12:19 | VNURNOTE ---
Home Health Liaison met with patient at bedside to discuss [facility] nurse/therapy, visits, schedule and homebound status. Patient is agreeable and understands that visits at home will be 2-3 x per week to assess and teach medical management.
Patient is aware that [facility] will contact them for start of care in 1-2 days after discharge from .
[facility] referral completed in [facility].
--- NOTE | 2024-12-09 12:28 | W.DCSUMMARY ---
Discharge Summary
Discharge Data
Date of Admission: 12/06/24
Date of Discharge: 12/09/24
-
Pending Results: No
Hospital Course
89 years old female presented with severe symptomatic postural symptoms including dizziness, unsteadiness and near syncopal feeling. Patient was found to have severe hypotension upon standing. Systolic blood pressure dropped from around 170-182 to
87/72 with severe dizziness. Patient did not have cardiac arrhythmias. No signs of infection. Hydralazine was stopped. She was started on low-dose of Florinef and very low-dose captopril to be given at night. She was monitored in the hospital.
Patient was noticed to have high responsiveness to midodrine after giving a small dose around 2.5 mg, her supine systolic blood pressure went up to 218. Midodrine was discontinued. Patient started to improve. She started to have smaller drop in
systolic blood pressure upon checking orthostatic vital signs. Patient also reported that she was not as dizzy as before and felt she was able to ambulate better. Patient was advised to monitor her blood pressure, wear pressure stockings to her
lower extremities and abdominal binder, and also to follow-up with her primary care doctor and her primary power system electrical engineer. Patient was evaluated by physical therapy and recommended home health services. Patient remained hemodynamically stable. She
was evaluated by power system electrical engineer. Patient was discharged home in a stable condition.
Discharge Plan
-
Patient Disposition: Home with Home Care
Discharge Diagnosis/Procedures: Recurrent severe symptomatic autonomic postural hypotension
We stopped hydralazine. You were started on new medicine called Florinef And captopril.
Follow-up with your primary care doctor. Blood pressure should be controlled according to the standing blood pressure and not sitting ( supine).
Follow regular diet for now
Diet: As tolerated
Referrals:
Ned Rea DO [Family Provider, Internal Medicine] - in one to two weeks
Prescriptions:
New
captopril 12.5 mg Tablet
6.25 mg PO HS Qty: 30 0RF
fludrocortisone 0.1 mg Tablet
0.05 mg PO BID Qty: 60 0RF
Continued
omeprazole 20 MG capsule,delayed release(DR/EC)
20 mg PO DAILY
ascorbic acid (vitamin C) [Vitamin C] 500 MG tablet
1,000 mg PO DAILY Qty: 0
calcium carbonate-vitamin D3 1 EACH tablet
1 tab PO DAILY Qty: 0
simvastatin 10 MG tablet
10 mg PO HS
diltiazem HCl 120 mg capsule,extended release 12 hr
120 mg PO BID
PreserVision AREDS-2 250-90-40-1 mg Capsule
1 tab PO DAILY Qty: 0
Eliquis 5 mg tablet
5 mg PO BID Qty: 30 0RF
acetaminophen [Tylenol Extra Strength] 500 mg Tablet
1,000 mg PO HS
Discontinued
hydralazine 10 mg tablet
10 mg PO TIDPRN PRN (Reason: hypertension)
Rx Instructions:
For systolic blood pressure >190 mmHg
Discharge Orders:
Discharge Patient (As Directed); Ordered 12/09/24
Ordered By: Mackenzie Urrutia
Discharge Date and Time
Print Language: COOK ISLANDER
== END 2024-12-09 12:42 | disposition home health service (06) | DRG 312 ==
LOC: 4 WEST ACU 06:55
PROVIDERS: ADMITTING PHYSICIAN Internal Medicine; ATTENDING PHYSICIAN Internal Medicine; CONSULT PHYSICIAN Internal Medicine Cardiovascular Disease; EMERGENCY PHYSICIAN Emergency Medicine; FAMILY PHYSICIAN Internal Medicine
DX: I95.1 Orthostatic hypotension (principal); J84.9 Interstitial pulmonary disease, unspecified; G62.9 Polyneuropathy, unspecified; I48.0 Paroxysmal atrial fibrillation; K21.9 Gastro-esophageal reflux disease without esophagitis; K44.9 Diaphragmatic hernia without obstruction or gangrene
CPT/HCPCS: 71046; 80053; 81003; 81015; 82962; 83735; 83880; 84443; 84484; 85025; 93005; 96360; 97162; 97166; 97530; 97535; 99285

== ENCOUNTER 2024-12-28 13:15 | Emergency (ER) | payer MEDICARE, SELFPAY ==
[2024-12-28] VITALS (12 sets, daily range): BP systolic 162–222; BP diastolic 67–176
[2024-12-28 14:53] LABS: Blood Urea Nitrogen 17 mg/dl (7-17); Calcium 8.9 mg/dl (8.4-10.2); Carbon Dioxide 28 mmol/L (22-30); Chloride 105 mmol/L (98-107); Glucose 139 mg/dl (70-99); Sodium 138 mmol/L (135-145); eGFR > 60.00
[2024-12-28 16:26] LABS: Hematocrit 46.5 % (37.0-47.0); Hemoglobin 15.2 g/dL (12.0-16.0); Mean Corp Hgb Conc. 32.7 g/dL (33.0-37.0); Mean Corpuscular Volume 95.3 fL (81.0-99.0); Nucleated Red Blood Cells % 0 %; Platelet Count 207 10^3/uL (130-400); Red Cell Dist. Width 13.2 % (11.5-14.5)
[2024-12-28] MEDS: ALDACTONE 25 MG PO (17:16)
--- NOTE | 2024-12-28 17:37 | ED.GENMED ---
History of Present Illness
General
Chief Complaint: Blood Pressure Problem
Source: patient
Exam Limitations: none
Time Seen by Provider: 12/28/24 16:10
Nursing documentation reviewed up to this point in time: agreed with
History of Present Illness
History of Present Illness:
see MDM
Past History
Past History
ED Past Medical History: GERD, HTN, Hypercholesterolemia and Other (Hiatal hernia, arthritis )
ED Past Surgical History: Appendectomy, Orthopedic (Bilateral knee replacement ) and Tonsilectomy
Social History
Tobacco: Non-smoker
Alcohol: Occasional
Drug: None
Employment: Retired
Family History
Family History: Other (Non-contributory )
Review of Systems
Review of Systems
Allergies reviewed?: Yes
All Other Systems: Not applicable
Phy Exam
Physical Exam
Physical Exam:
GENERAL: Alert; mildly anxious
EYE: pupils equal and reactive
NECK: Supple
ENT: o/p clr, mmm.
CARDIAC: Regular rate and rhythm .no murmur appreciated; no edema
LUNGS: Clear breath sounds bilaterally, no acute respiratory distress, no wheezes/rales/rhonchi
ABDOMEN: Soft, without focal tenderness, no r/g, no cvat, normal bowel sounds
gu: brief external inspection pt has some tiny amount of liquid stool on her pad, no vaginal discharge;
NEUROLOGICAL: Alert and oriented, no focal neuro deficits
SKIN: Warm and dry, skin intact.
MUSCULOSKELETAL: No edema, well perfused.
able to ambulate, has some arthritis so she is slow moving but no tendneress;
PSYCH: Normal and appropriate interaction; mildly anxious.
Course
Orders/Labs/Results
Orders:
Orders
12/28/24 13:53
Electrocardiogram (*1) Urgent
Reason for Study: Hypertension, Benign
EKG- Treatment ONCE
12/28/24 14:08
Basic Metabolic Panel Urgent
12/28/24 16:19
Complete Blood Count/With Diff Urgent
12/28/24 16:52
Spironolactone [Aldactone] 25 mg PO NOW STA
12/28/24 17:49
Potassium Urgent
Abnormal Lab Results
12/28/24 12/28/24 12/28/24
14:08 16:19 17:49
MCH 31.1 H pg
(27.0-31.0)
MCHC 32.7 L g/dL
(33.0-37.0)
MPV 10.5 H fL
(7.4-10.4)
Absolute Neuts (auto) 7.6 H 10^3/uL
(1.4-6.5)
Absolute Monos (auto) 0.7 H 10^3/uL
(0.1-0.6)
Lymphocytes % 18.8 L %
(20.5-51.1)
Potassium 3.3 L mmol/L
(3.5-5.1)
Glucose 139 H mg/dl
(70-99)
12/28/24 16:19
12/28/24 17:49
Vital Signs
Initial and Last Documented VS:
Initial Vital Signs
Temp Pulse Resp BP Pulse Ox
36.7 C 68 16 211/96 98
12/28/24 13:48 12/28/24 13:48 12/28/24 13:48 12/28/24 13:48 12/28/24 13:48
Last Documented Vital Signs
Temp Pulse Resp BP Pulse Ox
36.7 C 74 20 204/78 98
12/28/24 13:48 12/28/24 19:30 12/28/24 19:30 12/28/24 19:00 12/28/24 17:42
MDM/Problems Addressed
Differential Diagnosis Includes:
see MDM
MDM/Problems Addressed:
Note:
CHIEF COMPLAINT(S)
- Uncontrolled high blood pressure and dizziness.
HISTORY OF PRESENT ILLNESS
The patient is an 89-year-old female with a history of hypertension and significant orthostatic hypotension with it, presenting with significantly high blood pressure readings, including a recent measurement of 233 mmHg by a visiting nurse,
prompting an ambulance call. The patient reports a history of blood pressure fluctuations, with both extremely high and low readings, causing difficulty in functioning. She notes being particularly unsteady upon standing as a chronic issue with her
drops in bp, this is not new, but maybe a little worse today;. Additionally, the patient experiences shortness of breath, particularly during physical activities, and uses a walker due to her unsteady gait exacerbated by past bilateral knee and
shoulder replacements. She denies chest pain and reports no recent falls or syncope.
The patient was recently discharged from the hospital after admission 12/06-12/09 for these same symptoms, where changes in her medication regimen were made for her hypertension. she had hydralazine d/c'd and captopril at night as well as
fludrocortisone.
1 week after d/c she saw her PCP who d/c'd the captopril and started bystolic at night.
he wants her to wear compression stockings which she fails to do because she cannot get them on.
The patient frequently urinates and has noticed brown discoloration on her pads, which she believes might be vaginal in origin, but denies any abdominal pain or dysuria. She has a history of frequent bowel movements but reports constipation on the
day of assessment. The patient also experiences episodes of diarrhea, approximately twice a week.
The patient�s tooling engineering tech visit revealed no new changes to her regimen. She reports frustration with the unpredictability of her blood pressure and its impact on her daily life.
ADDITIONAL HISTORY OBTAINED FROM SOURCES OTHER THAN THE PATIENT
According to the visiting nurse, a recent measurement showed blood pressure as high as 233 mmHg, leading to an ambulance call.
CHRONIC MEDICAL CONDITIONS SIGNIFICANTLY AFFECTING CARE
- Hypertension
- Atrial fibrillation
- Interstitial lung disease
SOCIAL DETERMINANTS AFFECTING HEALTH
The patient lives alone, which raises concerns about her safety given her current unsteady gait and the use of anticoagulation therapy.
MEDICATIONS
- Nadolol (newly prescribed for hypertension)
- Apixaban (for atrial fibrillation)
- Flecainide (for atrial fibrillation)
- Simvastatin (for hyperlipidemia)
- Omeprazole (for gastroesophageal reflux disease)
- Fludrocortisone (unknown prescription history)
REVIEW OF SYSTEMS
- Cardiovascular: High blood pressure, history of atrial fibrillation.
- Respiratory: Shortness of breath with activity.
- Gastrointestinal: Diarrhea and constipation episodes, brown vaginal discharge.
- Genitourinary: Frequent urination, potential brown vaginal discharge.
- Neurological: Dizziness upon standing.
PHYSICAL EXAM
- Nursing notes reviewed and vital signs reviewed.
- Cardiovascular: Orthostatic hypotension noted with blood pressure dropping upon standing.
- General: Brown discoloration on pads noted, possibly vaginal in origin.
PLAN
- Monitor blood pressure and adjust medications as necessary with consultation between primary care and cardiology.
- Evaluate for potential causes of brown vaginal discharge, considering postmenopausal bleeding workup if indicated.
- Encourage continued use of walker for stability.
- Consider further evaluation for reasons behind the unsteady gait in conjunction with physical therapy.
- Telephone consultation with the family doctor to coordinate ongoing hypertension management and medication reconciliation.
DIFFERENTIAL DIAGNOSIS
The Differential Diagnosis includes, in no particular order and is not limited to:
- Hypertension
- Orthostatic hypotension
- Atrial fibrillation with rapid ventricular response
- Postural hypotension
- Interstitial lung disease exacerbation
- Adrenal insufficiency potentially linked to steroid treatment
- Vaginal atrophy or post-menopausal bleeding
- Heart failure
- Medication side effects
CARE-UPDATE
12/28/24 - 17:01
Spoke with pt's PCP regarding current medication regimen. he highlighted the association of asymptomatic hypertension with symptomatology consistent with orthostatic hypotension instead, contributing to fluctuations in blood pressure when standing.
he is aware of these issues which are chronic. would like to add aldactone 25 mg to regimen and follow up with her this week. he did not feel that she would benefit from another hospitlization and he did say that she has had this shaky feeling that
he also thinks is some stress/anxiety, which he tried medicating her in the past for but nothing helped.
she has been halfway patient of his for years.
dw ed attneindg who agreed
will give dose of aldactone and d/c home. Arrangements are being made for transportation with son. Patient reassured and instructed on new medication and management plan.
aware of bps still 190s/90s
pt is aysmptomatic.
*Pulse Oximetry
SaO2: 98
Oxygen Mode of Delivery: Room air
Patient hypoxic: no (98)
*Critical Care Note
Total Time (30-74mins, 75-104mins- exclusive of procedures): Not Applicable
ED Attending Note
-
Portions of this chart may have been created with voice recognition software.� Occasional wrong word or��sound alike� substitutions may have occurred due to the inherent limitations of voice recognition software.
Discharge Plan
Departure
Patient Disposition: Home (Routine Discharge)
Date of Disposition: 12/28/24
Time of Disposition: 18:48
Patient with high blood pressure during this ER visit?: Yes
Condition: Fair
Discharge Problem:
Hypertension, Orthostasis
Instructions: High Blood Pressure (DC)
Prescriptions:
New
spironolactone [Aldactone] 25 mg tablet
25 mg PO DAILY Qty: 30 0RF
No Action
omeprazole 20 MG capsule,delayed release(DR/EC)
20 mg PO DAILY
ascorbic acid (vitamin C) [Vitamin C] 500 MG tablet
1,000 mg PO DAILY Qty: 0
calcium carbonate-vitamin D3 1 EACH tablet
1 tab PO DAILY Qty: 0
simvastatin 10 MG tablet
10 mg PO HS
diltiazem HCl 120 mg capsule,extended release 12 hr
120 mg PO BID
PreserVision AREDS-2 250-90-40-1 mg Capsule
1 tab PO DAILY Qty: 0
Eliquis 5 mg tablet
5 mg PO BID Qty: 30 0RF
acetaminophen [Tylenol Extra Strength] 500 mg Tablet
1,000 mg PO HS
captopril 12.5 mg Tablet
6.25 mg PO HS Qty: 30 0RF
fludrocortisone 0.1 mg Tablet
0.05 mg PO BID Qty: 60 0RF
Referrals:
Ned Rea DO [Family Provider, Internal Medicine] - Follow up in 2-3 days
Activity Restrictions/Additional Instructions:
Your blood pressures are significantly elevated but you have no signs of any endorgan damage. You should start Aldactone once a day, you can take this in the morning. We gave you 1 dose here. Continue your other medications from your primary care
doctor and he would like to see you in the office. He said he will follow-up with you this week.
Return for any concerns like chest pain, passing out, severe headache, etc.
Please try to wear your compression stocking
Interventions
Interventions:
*Risk Screen - Suicide Last Done: 12/28/24 18:00
*General Assessment Last Done: 12/28/24 18:00
*Neglect/Abuse Screening Last Done: 12/28/24 18:00
*ED- Fall Risk Assessment Last Done: 12/28/24 21:09
*ED COVID-19 Vaccine History Last Done: 12/28/24 18:00
*Nursing Disposition Last Done: 12/28/24 21:09
ED- Cardiac Assessment Last Done: 12/28/24 18:00
ED- Neurological Assessment Last Done: 12/28/24 18:00
ED- Pulmonary Assessment Last Done: 12/28/24 18:00
Discharge Date and Time
Discharge Date/Time: 12/28/24 21:09
Print Language: MAORI
[2024-12-28 18:23] LABS: Potassium 3.3 mmol/L (3.5-5.1)
== END 2024-12-28 21:09 | disposition home or self-care (01) ==
LOC: EMR 13:15
PROVIDERS: Emergency Medicine; Physician Assistant; EMERGENCY PHYSICIAN Emergency Medicine; FAMILY PHYSICIAN Internal Medicine
DX: I95.1 Orthostatic hypotension (principal); I10 Essential (primary) hypertension; E78.00 Pure hypercholesterolemia, unspecified; I48.91 Unspecified atrial fibrillation; J84.9 Interstitial pulmonary disease, unspecified; K21.9 Gastro-esophageal reflux disease without esophagitis; Z79.01 Long term (current) use of anticoagulants; Z79.899 Other long term (current) drug therapy
CPT/HCPCS: 99284; 80048; 84132; 85025; 93005